=== PATIENT | female | born 1945 | race Hispanic/Latino ===

== ENCOUNTER 2025-03-20 21:10 | Inpatient (IN) | payer MEDICARE ==
[~2025-03-20] VITALS: Ht 157.5 cm; Wt 63.3 kg
[2025-03-20] MEDS: 0.9%NACL 1000ML 1,905 ML IV ONE (21:32)
[2025-03-20 21:36] LABS: BASOPHILS # (AUTO) 0.03 K/uL (0.00-0.20); BASOPHILS % (AUTO) 0.6 % (0.0-5.0); HEMATOCRIT 34.8 % (36-48); IMMATURE GRANULOCYTE ABSOLUTE 0.05 K/uL (0-1); LYMPHOCYTES # (AUTO) 0.4 K/uL (1.0-4.8); LYMPHOCYTES % (AUTO) 8.2 % (21.0-51.0); MEAN CORPUSCULAR HEMOGLOBIN 29.5 pg (27.0-33.0); MEAN CORPUSCULAR HGB CONC 35.1 g/dL (32.0-36.0); MEAN CORPUSCULAR VOLUME 84.1 fL (79-99); MONOCYTES # (AUTO) 0.2 K/uL (0.1-1.0); MONOCYTES % (AUTO) 3.5 % (3.0-13.0); NEUTROPHILS % (AUTO) 86.6 % (40.0-77.0); PLATELET COUNT (AUTO) 99 K/uL (130-400); RED BLOOD CELL COUNT(AUTO) 4.14 MIL/uL (4.00-5.50); RED CELL DISTRIBUTION WIDTH 12.5 % (11.0-15.5); WHITE BLOOD COUNT (AUTO) 4.6 K/uL (4.8-10.8)
--- NOTE | 2025-03-20 21:43 | EKG ---
[facility] Test Date: 2025-03-20 Test Time: 21:39:56 Pat Name: LUZ VAZQUEZ Department: EDH Room: 315 Gender: F Fisher Trammel Net: [id number] [phone] [id number] Requested By: DESIRAE STEEN Order Number: [id number] Reading MD: Sharif Zeng Measurements Intervals [place] Rate: 81 P: 47 IA: 136 QRS: 26 QRSD: 85 T: 85 QT: 388 QTc: 451 Interpretive Statements Sinus rhythm Nonspecific T abnrm, anterolateral leads suggests anterior injury No previous ECG available for comparison Electronically Signed On 03-21-2025 18:11:45 CDT by Sharif Zeng Please click the below link to view image of tracing.
[2025-03-20 21:50] LABS: CREATININE 0.9 mg/dL (0.5-1.0); POTASSIUM 3.5 mmol/L (3.5-5.1)
--- NOTE | 2025-03-20 21:53 | HMCIMG ---
INDICATION: sepsis TECHNIQUE: CHEST 1VW COMPARISON: None FINDINGS AND IMPRESSION: No acute consolidation or pleural effusion. Cardiac silhouette is within normal limits. Mild degenerative changes of the spine. The visualized upper abdomen appears unremarkable.
[2025-03-20 21:55] LABS: ALBUMIN 2.8 g/dL (3.5-5.0); BILIRUBIN,DIRECT 0.5 mg/dL (0.0-0.3); TOTAL PROTEIN, SERUM 5.9 g/dL (6.0-8.3)
[2025-03-20 22:01] LABS: COVID19 (SARS ANTIGEN RAPID) PRESUMPTIVE NEGATIVE (NEGATIVE); INFLUENZA TYPE A Negative For Type A (NEGATIVE); INFLUENZA TYPE B Negative For Type B (NEGATIVE)
--- NOTE | 2025-03-20 22:35 | HMCIMG ---
CT HEAD/BRAIN W/O CONTRAST HISTORY: Altered mental status COMPARISON: None TECHNIQUE: Multiple sequential axial images of the head were obtained from the base of the skull through vertex. Patient was not given contrast through intravenous route. FINDINGS: The ventricles and extraventricular CSF spaces are dilated consistent with cerebral atrophy. Nonspecific white matter changes seen. There is no midline shift, mass effect or herniation. No acute intracranial bleed is seen. Visualized portion of the paranasal sinuses are grossly within normal limits. IMPRESSION: 1. No acute intracranial bleed is seen. 2. Atrophy with white matter changes. CT was performed with one or more following dose reduction techniques: automated exposure control, adjustment of the mA and kv according to patient's size, or use of a iterative reconstruction technique.
--- NOTE | 2025-03-20 22:39 | ERN ---
General Chief Complaint: Altered Mental Status Stated Complaint: ALTERED MENTAL STATUS, FEVER Time Seen by MD: 21:23 History of Present Illness Initial Comments 79-year-old female brought in by EMS from home for generalized weakness and fever. Patient currently is GCS of 14, according to family the patient has a early-onset dementia, but has been more confused for the last few days. The daughter found her at home today to be very weak, she checked her temperature and she had a fever of 102 F. patient denies any symptoms currently. She denies any pain. According to family she has not had cough congestion vomiting or diarrhea. Family reports that she has been sleeping more, less active, and very weak with decreased oral intake. Daughter gave the patient 400 mg of ibuprofen prior to coming here. Family reports that the patient has not seen a doctor in years. She takes a daily multivitamin but otherwise no medications. She does live on her own. Allergies: Coded Allergies: No Known Drug Allergies (Unverified Allergy, Unknown, 03/20/25) Past Medical History Past Medical History: Dementia Past Surgical History: None ROS Dictation CONSTITUTIONAL: Generalized fatigue weakness HEAD/FACE: No signs of trauma. EENT: No eye pain, no blurred vision, no tearing, no double vision, no ear pain, no ear discharge, no nose pain, no nasal congestion, no throat pain, no throat swelling, no mouth pain. RESPIRATORY: No cough, no orthopnea, no SOB, no stridor, no wheezing. CARDIOVASCULAR: No chest pain, no edema, no palpitations, no syncope. GASTROINTESTINAL/ABDOMINAL: No abdominal pain, no constipation, no diarrhea, no nausea, no vomiting. GENITOURINARY: No abnormal discharge, no dysuria, no frequent urination, no hematuria. No complaints of pain in the genitals. MUSCULOSKELETAL: No back pain, no gout, no joint pain, no joint swelling, no muscle pain, no muscle stiffness, no neck pain. INTEGUMENTARY: No change in color, no change in hair/nails, no dryness, no lesion, no lumps, no rash. NEUROLOGICAL/PSYCH: No anxiety, not depressed, no emotional problem, no headache, no numbness, no pre-existing deficit, no history of seizures, no tremors, no weakness. HEMATOLOGIC/LYMPHATIC: Not anemic, no history of blood clots, no apparent bleeding, no bruising, glands not swollen. All Systems Negative, Except as Noted. Physical Exam Physical Exam Dictation VITAL SIGNS: Reviewed. GENERAL APPEARANCE: Alert, but more confused according to family baseline. Thin. HEAD AND FACE: Non-traumatic. EYES: PERRL, pink conjunctivas, eyelid no trauma, anterior chamber clear. EARS: Pinnas intact and no signs of trauma or erythema. Ear canals clear and no discharge. TMs no erythema. NOSE: No discharge, no bleeding. OROPHARYNX: Mouth normal, teeth no caries, tongue pink. Pharynx clear, no erythema. Tonsils no exudates, no abscesses noted. Mucous membrane moist. NECK: Supple, non-tender, no thyromegaly, no masses, no JVD, no bruits. BREAST: Deferred. CHEST: No tenderness, no crepitus, no paradoxical movement, no retractions. LUNGS: Clear, well-ventilated, symmetric, no rales, no wheezing, no rhonchi, no stridor, good breath sounds bilaterally. HEART: Regular rate, regular rhythm, no murmur, no gallops. VASCULAR: No peripheral edema. ABDOMEN: Soft, positive bowel sounds, nondistended, no guarding, nontender, no rebound, no masses no hepatomegaly, no splenomegaly, no Sandoval's sign, no hernias. RECTAL: Deferred. GENITAL: Deferred. NEUROLOGICAL: Normal speech, gross motor function intact, gross sensory function intact. MUSCULOSKELETAL: Neck nontender, full range of motion, back nontender, full range of motion. EXTREMITIES: Nontender, full range of motion. SKIN: Color pink, dry, no turgor, no rash, no lacerations, no abrasions, no contusions. LYMPHATICS: Deferred. Results Laboratory and Microbiology Lab and Micro Result Laboratory Tests Test 03/20/25 21:29 03/20/25 21:40 03/20/25 22:47 White Blood Count 4.6 K/uL (4.8-10.8) L Red Blood Count 4.14 MIL/uL (4.00-5.50) Hemoglobin 12.2 g/dL (12.0-16.0) Hematocrit 34.8 % (36-48) L Mean Corpuscular Volume 84.1 fL (79-99) Mean Corpuscular Hemoglobin 29.5 pg (27.0-33.0) Mean Corpuscular Hemoglobin Concent 35.1 g/dL (32.0-36.0) Red Cell Distribution Width 12.5 % (11.0-15.5) Platelet Count 99 K/uL (130-400) L Mean Platelet Volume 12.1 fL (7.5-10.5) H Immature Granulocyte % (Auto) 1.1 % (0-1) H Neutrophils (%) (Auto) 86.6 % (40.0-77.0) H Lymphocytes (%) (Auto) 8.2 % (21.0-51.0) L Monocytes (%) (Auto) 3.5 % (3.0-13.0) Eosinophils (%) (Auto) 0.0 % (0.0-8.0) Basophils (%) (Auto) 0.6 % (0.0-5.0) Neutrophils # (Auto) 4.0 K/uL (1.8-7.7) Lymphocytes # (Auto) 0.4 K/uL (1.0-4.8) L Monocytes # (Auto) 0.2 K/uL (0.1-1.0) Eosinophils # (Auto) 0.00 K/uL (0.00-0.70) Basophils # (Auto) 0.03 K/uL (0.00-0.20) Absolute Immature Granulocyte (auto 0.05 K/uL (0-1) Nucleated Red Blood Cells 0.0 % (0.0-0.19) White Cell Morphology Comment See comments Sodium Level 126 mmol/L (136-145) L Potassium Level 3.5 mmol/L (3.5-5.1) Chloride Level 93 mmol/L (101-111) L Carbon Dioxide Level 27 mmol/L (21-32) Blood Urea Nitrogen 20 mg/dL (7-18) H Creatinine 0.9 mg/dL (0.5-1.0) Glomerular Filtration Rate Calc 65 mL/min (>90) Random Glucose 147 mg/dL (70-105) H Lactic Acid Level 1.2 mmol/L (0.8-2.5) Total Calcium 7.9 mg/dL (8.5-10.1) L Total Bilirubin 1.0 mg/dL (0.2-1.0) Direct Bilirubin 0.5 mg/dL (0.0-0.3) H Aspartate Amino Transf (AST/SGOT) 43 U/L (10-37) H Alanine Aminotransferase (ALT/SGPT) 23 U/L (12-78) Alkaline Phosphatase 69 U/L (50-136) Total Creatine Kinase 225 U/L (21-232) Troponin I High Sensitivity 27 ng/L (4-50) Total Protein 5.9 g/dL (6.0-8.3) L Albumin 2.8 g/dL (3.5-5.0) L Procalcitonin 1.10 ng/mL (0.05-0.5) H Influenza Type A Antigen Negative For Type A Influenza Type B Antigen Negative For Type B SARS-CoV-2 Antigen (Rapid) PRESUMPTIVE NEGATIVE Urine Color YELLOW (YELLOW) Urine Appearance CLOUDY (CLEAR) H Urine pH 6.0 (5.0-8.0) Urine Specific [place] 1.022 (1.001-1.031) Urine Protein 50 mg/dL (NEGATIVE) H Urine Glucose (UA) NEGATIVE mg/dL (NEGATIVE) Urine Ketones 5 mg/dL (NEGATIVE) H Urine Occult Blood SMALL (NEGATIVE) H Urine Nitrate NEGATIVE (NEGATIVE) Urine Bilirubin NEGATIVE mg/dL (NEGATIVE) Urine Urobilinogen 4.0 mg/dL (0.2-1.0) H Urine Leukocyte Esterase 75 Jori/uL (NEGATIVE) H MDM CC: Generalized weakness, fever Historian: Family, patient has a history of dementia in his an unreliable historian Limitations by social determinants of health: None Comorbidities: Advanced age Differential diagnosis: Sepsis, UTI, pneumonia, bacteremia, dehydration, electrolyte abnormality, other. EKG (independently interpreted by me): Sinus rhythm, rate 81, normal axis, good R-wave progression, intervals are stable. T-wave inversion lead V2 through V6. No STEMI. CT head without contrast (independently interpreted by me): No acute bleed or major abnormality. Chronic changes present. CXR (independently interpreted by me): No cardiomegaly, no pleural effusions, no focal infiltrates. No pneumothorax. Labs (independently ordered and interpreted by me): White blood cell count 4.6, left shift 87% neutrophils. No bands. No anemia. Thrombocytopenia platelets 99. No previous labs to compare to. Chemistry shows dehydration, sodium 126 chloride 93 hyponatremia. Elevated BUN to creatinine ratio. Lactic acid is normal. Liver enzymes are all normal. CK and troponin are normal. Protocol mildly elevated 1.1. Flu and SARS are negative. UA postiive for UTI. Treatment in ED: 30 cc/kg normal saline per sepsis protocol, 1 g Rocephin. Plan: We will admit for hyponatremia, dehydration, thrombocytopenia, pending a urine possibly a urinary tract infection. Consultation: Hospitalist for admission. ED Course Orders Procedure Category Date Status Time Cbc With Differential LAB 03/20/25 Complete 21: Blood Cult BRANDY 03/20/25 In Process 21: Urinalysis Profile LAB 03/20/25 In Process 21:23 Culture Urine BRANDY 03/20/25 In Process 21:23 0.9%Nacl 1000ml (Ns PHA 03/20/25 In Process 1000ml) 21:30 Creatine Kinase, Total LAB 03/20/25 Complete 21:23 Troponin I High LAB 03/20/25 Complete Sensitivity 21:23 Lactic Acid LAB 03/20/25 Complete 21:23 Basic Metabolic Panel LAB 03/20/25 Complete 21:23 Chest 1vw RAD 03/20/25 Resulted 21:23 Procalcitonin LAB 03/20/25 Complete 21:23 Covid19 (Sars Antigen LAB 03/20/25 Complete Rapid) 21:23 Influenza Type A & B, LAB 03/20/25 Complete Rapid 21:23 Hepatic Function Panel LAB 03/20/25 Complete 21:23 Ct Head/Brain W/O CT 03/20/25 Resulted Contrast 21:23 12 Lead Ekg Tracing- EKG 03/20/25 Complete Technical 21:32 Ceftriaxone 1g Vial PHA 03/20/25 Complete (Rocephine 1g Inj) 23:00 Current Medications Medications (Trade) Dose Ordered Sig/Lucila Route PRN Reason Start Time Stop Time Status Last Admin Dose Admin Ceftriaxone Sodium (ROCEphine 1G INJ) 1 gm ONCE ONCE IVPB 03/20/25 23:00 03/20/25 23:01 DC Sodium Chloride 1,905 ml @ 635 mls/hr ONCE ONCE IV 03/20/25 21:30 03/21/25 00:29 03/20/25 21:32 Vital Signs Date Time Temp Pulse Resp B/P (MAP) Pulse Ox O2 Delivery O2 Flow Rate FiO2 03/20/25 21:16 99.7 86 14 115/59 97 Room Air* 0 21 03/20/25 21:11 89 16 109/68 99 0 DX & DISP Disposition: Inpatient Departure Impression: Primary Impression: Hyponatremia Additional Impressions: Dehydration, Generalized weakness, Thrombocytopenia, UTI (urinary tract infection) Condition: Stable Referrals: NEHEMIAH ZHONG MD (PCP) DESIRAE STEEN DO Mar 20, 2025 22:39
[2025-03-20 22:59] LABS: APPEARANCE,URINE CLOUDY (CLEAR); BILIRUBIN,URINE NEGATIVE (NEGATIVE); COLOR,URINE YELLOW (YELLOW); GLUCOSE, URINE (UA) NEGATIVE (NEGATIVE); KETONES,URINE 5 mg/dL (NEGATIVE); LEUKOCYTE ESTERASE ,URINE 75 Leu/uL (NEGATIVE); NITRATE,URINE NEGATIVE (NEGATIVE); OCCULT BLOOD,URINE SMALL (NEGATIVE); PROTEIN,URINE 50 mg/dL (NEGATIVE)
[2025-03-20 23:01] LABS: ADD UA MICROSCOPIC YES
[2025-03-20 23:06] LABS: BACTERIA,URINE MANY /HPF (None Seen); MUCUS,URINE MANY LPF (None Seen)
--- NOTE | 2025-03-20 23:09 | HP ---
[facility] HISTORY AND PHYSICAL Date of Service: Mar 20, 2025 Time of Service: 23:08 ATTENDING/SUPERVISING PHYSICIANS: Dr. Delgado and Dr. Martinez HISTORY OF PRESENT ILLNESS: Ms. Lagunas is a 79-year-old female who presented to [facility] ED via EMS from home for evaluation of generalized weakness and fever. Patient currently is GCS of 14. Per ED according to family the patient has a early-onset dementia, but has been more confused for the last few days. The daughter found her at home today to be very weak, she checked her temperature and she had a fever of 102 F. The patient denies any symptoms currently or any pain, cough, congestion, vomiting, or diarrhea. Family reported that she has been sleeping more, less active, and very weak with decreased oral intake. Daughter gave the patient 400 mg of ibuprofen prior to coming here. Family reports that the patient has not seen a doctor in years. She takes a daily multivitamin but otherwise no medications. She does live on her own. The patient was found to have a UTI. Sodium was 126. Negative for flu and COVID. CT of head: No acute intracranial bleed. Atrophy with white matter changes. Chest x-ray: No consolidations or pleural effusions. In ED patient was administered Rocephin1 g IV and NS IV 1905 mL. ED provider request patient be admitted to the hospital with the diagnosis of hyponatremia, dehydration, generalized weakness, thrombocytopenia, UTI. ED provider request consult to be placed for case management for placement at SNF. I assessed the patient at bedside in room number ED 10. Patient's breathing was even, unlabored, in no distress. Patient was oriented to person, place and situation. Not oriented to time. She states she does feel more confused than usual. I informed her of labs, diagnostics, and plan of care. She verbalized understanding and is in agreement with the plan. Plan and assessment are listed below. REVIEW OF SYSTEMS 12-point ROS reviewed with patient. All pertinent positives mentioned above. Otherwise negative, noncontributory, non-pertinent. PAST MEDICAL HISTORY: As mentioned above PAST SURGICAL HISTORY: None PAST SOCIAL HISTORY: Denied alcohol, tobacco, illicit drug use FAMILY HISTORY: Nonpertinent Coded Allergies: No Known Drug Allergies (Unverified Allergy, Unknown, 03/20/25) PHYSICAL EXAM GENERAL APPEARANCE: The patient is awake, alert, and oriented, in no acute cardiopulmonary distress. NEUROLOGICAL: Cranial nerves II-XII grossly intact. Motor is 5/5 in bilateral upper and lower extremities proximal to distal. No sensory deficits. HEENT: Face is symmetric. Pupils are equal and reactive. Extraocular movements are intact. NECK: Supple. No JVD. No thyromegaly. No submental, submandibular, pre- /postauricular, occipital or supraclavicular lymphadenopathy. CHEST: Normal chest expansion. No Telemetry. LUNGS: Absence of any rales, rhonchi or any wheezing. CARDIOVASCULAR: Regular. S1 and S2 normal. No appreciable rubs, murmurs or gallops. ABDOMEN: Soft, nontender, and nondistended. There is no rebound, voluntary guarding, or rigidity. : Deferred. No Taylor. EXTREMITIES: Non-edematous and not cyanotic. No clubbing. Good capillary refill. SKIN: No skin breakdown. Vital Sign (Last 24 Hours) 03/20/25 21:16 Temp 99.7 Pulse 86 Resp 14 B/P (MAP) 115/59 Pulse Ox 97 O2 Delivery Room Air* O2 Flow Rate 0 FiO2 21 LABS: Laboratory: Test 03/20/25 22:47 03/20/25 21:40 03/20/25 21:29 Range/Units Urine Color YELLOW YELLOW Urine Appearance CLOUDY H CLEAR Urine pH 6.0 5.0-8.0 Urine Specific [place] 1.022 1.001-1.031 Urine Protein 50 H NEGATIVE mg/dL Urine Glucose (UA) NEGATIVE NEGATIVE mg/dL Urine Ketones 5 H NEGATIVE mg/dL Urine Occult Blood SMALL H NEGATIVE Urine Nitrate NEGATIVE NEGATIVE Urine Bilirubin NEGATIVE NEGATIVE mg/dL Urine Urobilinogen 4.0 H 0.2-1.0 mg/dL Urine Leukocyte Esterase 75 H NEGATIVE Jori/uL Urine RBC 2-5 H 0-1 /HPF Urine WBC 11-25 H 0-1 /HPF Urine Bacteria MANY None Seen /HPF Influenza Type A Antigen Negative For Type A NEGATIVE Influenza Type B Antigen Negative For Type B NEGATIVE SARS-CoV-2 Antigen (Rapid) PRESUMPTIVE NEGATIVE NEGATIVE White Blood Count 4.6 L 4.8-10.8 K/uL Red Blood Count 4.14 4.00-5.50 MIL/uL Hemoglobin 12.2 12.0-16.0 g/dL Hematocrit 34.8 L 36-48 % Mean Corpuscular Volume 84.1 79-99 fL Mean Corpuscular Hemoglobin 29.5 27.0-33.0 pg Mean Corpuscular Hemoglobin Concent 35.1 32.0-36.0 g/dL Red Cell Distribution Width 12.5 11.0-15.5 % Platelet Count 99 L 130-400 K/uL Mean Platelet Volume 12.1 H 7.5-10.5 fL Immature Granulocyte % (Auto) 1.1 H 0-1 % Neutrophils (%) (Auto) 86.6 H 40.0-77.0 % Lymphocytes (%) (Auto) 8.2 L 21.0-51.0 % Monocytes (%) (Auto) 3.5 3.0-13.0 % Eosinophils (%) (Auto) 0.0 0.0-8.0 % Basophils (%) (Auto) 0.6 0.0-5.0 % Neutrophils # (Auto) 4.0 1.8-7.7 K/uL Lymphocytes # (Auto) 0.4 L 1.0-4.8 K/uL Monocytes # (Auto) 0.2 0.1-1.0 K/uL Eosinophils # (Auto) 0.00 0.00-0.70 K/uL Basophils # (Auto) 0.03 0.00-0.20 K/uL Absolute Immature Granulocyte (auto 0.05 0-1 K/uL Nucleated Red Blood Cells 0.0 0.0-0.19 % White Cell Morphology Comment See comments Sodium Level 126 L 136-145 mmol/L Potassium Level 3.5 3.5-5.1 mmol/L Chloride Level 93 L 101-111 mmol/L Carbon Dioxide Level 27 21-32 mmol/L Blood Urea Nitrogen 20 H 7-18 mg/dL Creatinine 0.9 0.5-1.0 mg/dL Glomerular Filtration Rate Calc 65 >90 mL/min Random Glucose 147 H 70-105 mg/dL Lactic Acid Level 1.2 0.8-2.5 mmol/L Total Calcium 7.9 L 8.5-10.1 mg/dL Total Bilirubin 1.0 0.2-1.0 mg/dL Direct Bilirubin 0.5 H 0.0-0.3 mg/dL Aspartate Amino Transf (AST/SGOT) 43 H 10-37 U/L Alanine Aminotransferase (ALT/SGPT) 23 12-78 U/L Alkaline Phosphatase 69 50-136 U/L Total Creatine Kinase 225 21-232 U/L Troponin I High Sensitivity 27 4-50 ng/L Total Protein 5.9 L 6.0-8.3 g/dL Albumin 2.8 L 3.5-5.0 g/dL Procalcitonin 1.10 H 0.05-0.5 ng/mL DIAGNOSTICS / RADIOLOGY: [ ] ASSESSMENT: Acute complicated cystitis, POA Acute metabolic encephalopathy, POA Hyponatremia, POA Electrolyte derangement (hyponatremia, hypochloremia, hypocalcemia) Protein calorie malnutrition/hypoalbuminemia Dehydration/ketonuria, POA Acute kidney injury, POA, GFR 65 (no other GFR to compare) Acute febrile illness, POA Hyperglycemia Elevated AST and direct bilirubin General body weakness/debility/frailty Anorexia Leukopenia, POA Anemia Thrombocytopenia Dementia PLAN: -Admit to Medical floor with continuous telemetry monitoring and fall precautions. -Rocephin 2 g IV daily. (ED administered Rocephin 1 g) Follow urine cultures. Antibiotic tailored to culture results. -ED administered NS 30 mL/kilos. Continue NS at 75 mL an hour. -Monitor sodium level. -Consult case management for SNF placement. -Obtain abdominal sonogram for elevated AST and direct bilirubin. -Monitor respiratory status closely. Oxygen therapy as needed to keep Spo2>/+=92%. -PRN medications for: Pain management, fever, hypertension, N/V, constipation. -Glucometer checks AC & HS needed with insulin regular sliding scale coverage as needed. -Blood pressure checks every 4 hours and as needed. -Reconcile home medications once available. - Monitor renal and liver function. -Monitor electrolytes and treat accordingly PRN -AM labs. -GI and DVT prophylaxis -Further plan/orders per hospitalization course. ADVANCED CARE PLANNING 1. Which of the following were discussed? Hospice Care - No Therapeutic options - Yes Advance Directives - Yes Other discussions - 2. Discussed with who? The patient 3. Voluntary nature of this service was explained to the patient? Yes 4. Amount of time spent - __ Over 40 minutes 5. Reviewed by Physician? (if this service was performed by NPP) Yes / No ATTESTATION BY PHYSICIAN I have seen and examined the patient. I reviewed the documentation, medical decision making, and treatment plan as noted by the mid-level provider above. I agree with the findings and plan of care. ALEXANDRE YE [facility] Mar 20, 2025 23:09
[2025-03-20] MEDS: cefTRIAXone 1G VIAL IVPB ONE (23:19)
[2025-03-21] VITALS (7 sets, daily range): BP systolic 106–172; BP diastolic 48–70; PULSE 76–95; RESP 17–19; TEMP 98.1–101.1; O2SAT 92
[2025-03-21] MEDS: 0.9%NACL 1000ML 1,000 ML IV ONE (01:30)
[2025-03-21] MEDS ORDERED: LAbetaLOL 20MG SYG IV PRN (01:30)
[2025-03-21] MEDS ORDERED: LACTULOSE 20 GM/30 ML UDCUP PO PRN (01:30)
[2025-03-21] MEDS ORDERED: acetaMINOPHEN 650 MG SUPPOSITORY RC PRN (01:30)
[2025-03-21] MEDS ORDERED: ondanSETRON 4MG INJ IVP PRN (01:30)
[2025-03-21] MEDS ORDERED: doCUSate SODIUM 100 MG CAP PO PRN (01:30)
[2025-03-21] MEDS: INSULIN humuLIN R 100 UNIT/ML 3ML SQ SCH (06:01)
[2025-03-21 07:13] LABS: HEMATOCRIT 32.8 % (36-48); MEAN CORPUSCULAR HEMOGLOBIN 29.9 pg (27.0-33.0); RED BLOOD CELL COUNT(AUTO) 3.95 MIL/uL (4.00-5.50); RED CELL DISTRIBUTION WIDTH 12.5 % (11.0-15.5)
[2025-03-21 07:22] LABS: CREATININE 0.6 mg/dL (0.5-1.0); POTASSIUM 3.3 mmol/L (3.5-5.1)
[2025-03-21 07:25] LABS: ALBUMIN 2.3 g/dL (3.5-5.0); BILIRUBIN,TOTAL 0.8 mg/dL (0.2-1.0); MAGNESIUM 1.5 mg/dL (1.80-2.40); PHOSPHORUS 1.9 mg/dL (2.5-4.9); TOTAL PROTEIN, SERUM 5.2 g/dL (6.0-8.3)
[2025-03-21 07:52] LABS: THYROID STIMULATING HORMONE 1.49 uIU/mL (0.36-3.74)
[2025-03-21 07:57] LABS: HEMOGLOBIN A1C 5.1 % (4.0-6.0)
--- NOTE | 2025-03-21 11:01 | NUR ---
DCP: [facility] met with dgt Michelle Brennertimothy [phone] (POA). Pt currently lives in a [facility] alone. Pt does not have DME, home health, or provider services. Pt's dgt states that pt has not been to a dr in about 3 years because she refuses to go. Her last PCP was Dr. Bryan Rogers. At [place] pt will be going to [facility]. Addendum: 03/21/25 at 1104 by OSMANI COX SS Amended: Links added.
--- NOTE | 2025-03-21 11:39 | PN ---
[facility] PROGRESS NOTE Date of Service: Mar 21, 2025 Time of Service: 11:[address] leigh SUBJECTIVE: [ 03/20 Ms. Lagunas is a 79-year-old female who presented to [facility] ED via EMS from home for evaluation of generalized weakness and fever. Patient currently is GCS of 14. Per ED according to family the patient has a early-onset dementia, but has been more confused for the last few days. The daughter found her at home today to be very weak, she checked her temperature and she had a fever of 102 F. The patient denies any symptoms currently or any pain, cough, congestion, vomiting, or diarrhea. Family reported that she has been sleeping more, less active, and very weak with decreased oral intake. Daughter gave the patient 400 mg of ibuprofen prior to coming here. Family reports that the patient has not seen a doctor in years. She takes a daily multivitamin but otherwise no medications. She does live on her own. The patient was found to have a UTI. Sodium was 126. Negative for flu and COVID. CT of head: No acute intracranial bleed. Atrophy with white matter changes. Chest x-ray: No consolidations or pleural effusions. In ED patient was administered Rocephin1 g IV and NS IV 1905 mL. ED provider request patient be admitted to the hospital with the diagnosis of hyponatremia, dehydration, generalized weakness, thrombocytopenia, UTI. ED provider request consult to be placed for case management for placement at SNF. I assessed the patient at bedside in room number ED 10. Patient's breathing was even, unlabored, in no distress. Patient was oriented to person, place and situation. Not oriented to time. She states she does feel more confused than usual. I informed her of labs, diagnostics, and plan of care. She verbalized understanding and is in agreement with the plan. Plan and assessment are listed below. 03/21 was seen by nurse practitioner and physician during rounding in room 315. Patient receive two doses of 40 mEq of potassium for potassium of 3.3 today. Also magnesium was 1.5 and patient will receive 2 g of magnesium. UA was positive for leukocytosis. Patient continues to be on Rocephin 2 g daily urine culture pending. Chest x-ray negative. Head CT negative. Ultrasound abdomen pending results. Patient was on complaining of the redness and pus coming off of the patient's both eyes. Possibly patient may have a pink eye tobramycin was ordered. As per daughter was sitting at the bedside she has a beginning of dementia. We will start patient on memantine 5 mg b.i.d. for now. We will continue to monitor patient in the meantime. A.m. labs.] REVIEW OF SYSTEMS 12-point ROS reviewed with patient. All pertinent positives mentioned above. Otherwise negative, noncontributory, non-pertinent. PHYSICAL EXAM GENERAL APPEARANCE: The patient is awake, alert, and oriented, in no acute cardiopulmonary distress. NEUROLOGICAL: Cranial nerves II-XII grossly intact. Motor is 5/5 in bilateral upper and lower extremities proximal to distal. No sensory deficits. HEENT: Face is symmetric. Pupils are equal and reactive. Extraocular movements are intact. NECK: Supple. No JVD. No thyromegaly. No submental, submandibular, pre- /postauricular, occipital or supraclavicular lymphadenopathy. CHEST: Normal chest expansion. No Telemetry. LUNGS: Absence of any rales, rhonchi or any wheezing. CARDIOVASCULAR: Regular. S1 and S2 normal. No appreciable rubs, murmurs or gallops. ABDOMEN: Soft, nontender, and nondistended. There is no rebound, voluntary guarding, or rigidity. : Deferred. No Taylor. EXTREMITIES: Non-edematous and not cyanotic. No clubbing. Good capillary refill. SKIN: No skin breakdown. Vital Signs (last 8hr) Date Time Temp Pulse Resp B/P (MAP) Pulse Ox O2 Delivery O2 Flow Rate FiO2 03/21/25 08:00 99.9 93 17 111/48 92 Room Air 03/21/25 05:12 98.2 87 19 172/52 99 Room Air LABS: Laboratory: Test 03/21/25 07:06 03/21/25 05:54 03/20/25 22:47 03/20/25 21:40 Range/Units White Blood Count 6.0 # 4.8-10.8 K/uL Red Blood Count 3.95 L 4.00-5.50 MIL/uL Hemoglobin 11.8 L 12.0-16.0 g/dL Hematocrit 32.8 L 36-48 % Mean Corpuscular Volume 83.0 79-99 fL Mean Corpuscular Hemoglobin 29.9 27.0-33.0 pg Mean Corpuscular Hemoglobin Concent 36.0 32.0-36.0 g/dL Red Cell Distribution Width 12.5 11.0-15.5 % Platelet Count 78 L 130-400 K/uL Mean Platelet Volume 12.5 H 7.5-10.5 fL Nucleated Red Blood Cells 0.0 0.0-0.19 % Sodium Level 135 L 136-145 mmol/L Potassium Level 3.3 L 3.5-5.1 mmol/L Chloride Level 102 101-111 mmol/L Carbon Dioxide Level 25 21-32 mmol/L Blood Urea Nitrogen 15 7-18 mg/dL Creatinine 0.6 0.5-1.0 mg/dL Glomerular Filtration Rate Calc 91 >90 mL/min Random Glucose 105 70-105 mg/dL Hemoglobin A1c 5.1 4.0-6.0 % Estimated Average Glucose (eAG) 100 70-126 mg/dL Total Calcium 7.5 L 8.5-10.1 mg/dL Phosphorus Level 1.9 L 2.5-4.9 mg/dL Magnesium Level 1.50 L 1.80-2.40 mg/dL Total Bilirubin 0.8 0.2-1.0 mg/dL Aspartate Amino Transf (AST/SGOT) 57 H 10-37 U/L Alanine Aminotransferase (ALT/SGPT) 24 12-78 U/L Alkaline Phosphatase 62 50-136 U/L Ammonia 25 11-32 umol/L Troponin I High Sensitivity 33 4-50 ng/L Total Protein 5.2 L 6.0-8.3 g/dL Albumin 2.3 L 3.5-5.0 g/dL Vitamin B12 Level 466 193-986 pg/mL Folic Acid (LAB) 12.20 2-20 ng/mL Thyroid Stimulating Hormone (TSH) 1.49 0.36-3.74 uIU/mL Whole Blood Glucose 81 70-110 MG/DL Urine Color YELLOW YELLOW Urine Appearance CLOUDY H CLEAR Urine pH 6.0 5.0-8.0 Urine Specific [place] 1.022 1.001-1.031 Urine Protein 50 H NEGATIVE mg/dL Urine Glucose (UA) NEGATIVE NEGATIVE mg/dL Urine Ketones 5 H NEGATIVE mg/dL Urine Occult Blood SMALL H NEGATIVE Urine Nitrate NEGATIVE NEGATIVE Urine Bilirubin NEGATIVE NEGATIVE mg/dL Urine Urobilinogen 4.0 H 0.2-1.0 mg/dL Urine Leukocyte Esterase 75 H NEGATIVE Jori/uL Urine RBC 2-5 H 0-1 /HPF Urine WBC 11-25 H 0-1 /HPF Urine Bacteria MANY None Seen /HPF Influenza Type A Antigen Negative For Type A NEGATIVE Influenza Type B Antigen Negative For Type B NEGATIVE SARS-CoV-2 Antigen (Rapid) PRESUMPTIVE NEGATIVE NEGATIVE Test 03/20/25 21:29 Range/Units Immature Granulocyte % (Auto) 1.1 H 0-1 % Neutrophils (%) (Auto) 86.6 H 40.0-77.0 % Lymphocytes (%) (Auto) 8.2 L 21.0-51.0 % Monocytes (%) (Auto) 3.5 3.0-13.0 % Eosinophils (%) (Auto) 0.0 0.0-8.0 % Basophils (%) (Auto) 0.6 0.0-5.0 % Neutrophils # (Auto) 4.0 1.8-7.7 K/uL Lymphocytes # (Auto) 0.4 L 1.0-4.8 K/uL Monocytes # (Auto) 0.2 0.1-1.0 K/uL Eosinophils # (Auto) 0.00 0.00-0.70 K/uL Basophils # (Auto) 0.03 0.00-0.20 K/uL Absolute Immature Granulocyte (auto 0.05 0-1 K/uL White Cell Morphology Comment See comments Lactic Acid Level 1.2 0.8-2.5 mmol/L Direct Bilirubin 0.5 H 0.0-0.3 mg/dL Total Creatine Kinase 225 21-232 U/L Procalcitonin 1.10 H 0.05-0.5 ng/mL Current Medications Medications (Trade) Dose Ordered Sig/Lucila Route PRN Reason Start Time Stop Time Status Last Admin Dose Admin Acetaminophen (TYLenol 325MG TAB) 650 mg Q6H PRN PO FEVER/MILD PAIN LEVEL 1-3 03/21/25 01:30 04/20/25 01:29 Acetaminophen (TYLenol 650MG SUPPOSITORY) 650 mg Q6H PRN RC FEVER / MILD PAIN 1-3 IF NPO 03/21/25 01:30 04/20/25 01:29 Ceftriaxone Sodium (Rocephin 2gm Inj) 2 gm Q24H IVPB 03/21/25 23:00 03/31/25 22:59 Docusate Sodium (COLace 100MG CAP) 100 mg BID PRN PO CONSTIPATION 03/21/25 01:30 04/20/25 01:29 Insulin Human Regular (humuLIN R 100 UNIT/ML 3ML) INSULIN SLIDING SCAL... ACHS SQ 03/21/25 07:30 04/20/25 07:29 Labetalol HCl (TRANdate 20MG SYG) 10 mg Q2H PRN IV SBP GREATER THAN 160 03/21/25 01:30 04/20/25 01:29 Lactulose (Constulose 20gm/ 30ml Udcup) 20 gm Q6H PRN PO CONSTIPATION 03/21/25 01:30 04/20/25 01:29 Magnesium Sulfate 50 ml @ 0 mls/hr PROTOCOL IV 03/21/25 10:30 04/20/25 10:29 Ondansetron HCl (zoFRAN 4MG INJ) 4 mg Q6H PRN IVP NAUSEA/VOMITING 03/21/25 01:30 04/20/25 01:29 DIAGNOSTICS / RADIOLOGY: [ ] ASSESSMENT: Acute complicated cystitis, POA Acute metabolic encephalopathy, POA [place] eye POA New diagnosis of dementia POA Hyponatremia, POA Electrolyte derangement (hyponatremia, hypochloremia, hypocalcemia) Severe Protein calorie malnutrition/hypoalbuminemia Acute Dehydration/ketonuria, POA Acute kidney injury, POA, GFR 65 (no other GFR to compare) Acute febrile illness, POA Hyperglycemia Elevated AST and direct bilirubin General body weakness/debility/frailty Anorexia Leukopenia, POA Anemia Thrombocytopenia PLAN: Continue medical surgical floor with telemetry Continue 2 g of antibiotic daily Urine culture pending Normal saline at 75 mL/hour Case management is working on [facility] Chest x-ray negative Head CT negative Ultrasound abdomen pending Home medications to be reconciled once available. At this moment no meds in the computer -Monitor respiratory status closely. Oxygen therapy as needed to keep Spo2>/+=92%. -PRN medications for: Pain management, fever, hypertension, N/V, constipation. -Glucometer checks AC & HS needed with insulin regular sliding scale coverage as needed. - Monitor renal and liver function. -Monitor electrolytes and treat accordingly PRN -AM labs. -GI and DVT prophylaxis -Further plan/orders per hospitalization course. ATTESTATION BY PHYSICIAN I have seen and examined the patient. I reviewed the documentation, medical decision making, and treatment plan as noted by the mid-level provider above. I agree with the findings and plan of care. TRANG Lazo MD RISK MANAGEMENT ANALYST Mar 21, 2025 11:39
[2025-03-21] MEDS: PoTASSium chloRIDE 20MEQ ER 20 MEQ ERTAB PO ONE ×2 (11:54→13:19)
--- NOTE | 2025-03-21 15:02 | HMCIMG ---
US ABDOMINAL RUQ\E\LTD HISTORY: Elevated liver enzymes COMPARISON: None TECHNIQUE: Right upper quadrant abdominal ultrasound study was performed. FINDINGS: Liver measures 13 cm. There is gallbladder polyp measuring 3 x 2 x 4 mm. The visualized portion of the pancreas is within normal limits. Liver is echogenic consistent with liver parenchymal disease. No gallstone is seen. Common duct measures 4 mm. No evidence of gallbladder wall thickening is seen. Right kidney measures 9.8 x 4.6 x 3.9 cm. No hydronephrosis is seen of the right kidney. IMPRESSION: 1. Gallbladder polyp. No gallstones or ductal dilatation is seen. 2. No hydronephrosis is seen.
[2025-03-21] MEDS: MAGNESIUM 2GM PREMIX 50ML 50 ML IV SCH (15:17)
[2025-03-21] MEDS: TobRAMYCin/DEXAmethASONE OPTH SUSP 2.5 ML BOT OS SCH (17:05)
[2025-03-21] MEDS: acetaMINOPHEN 325 MG TAB PO PRN (17:06)
[2025-03-21] MEDS: MEMANtine HCL 5 MG TABLET PO SCH (19:53)
[2025-03-21] MEDS: cefTRIAXone 2GM VIAL IVPB SCH (22:18)
[2025-03-22] VITALS (9 sets, daily range): BP systolic 112–164; BP diastolic 42–81; PULSE 82–103; RESP 17–19; TEMP 98.1–103.1; O2SAT 96–100
[2025-03-22 06:07] LABS: BASOPHILS # (AUTO) 0.02 K/uL (0.00-0.20); BASOPHILS % (AUTO) 0.4 % (0.0-5.0); HEMATOCRIT 32.7 % (36-48); IMMATURE GRANULOCYTE ABSOLUTE 0.05 K/uL (0-1); LYMPHOCYTES # (AUTO) 0.2 K/uL (1.0-4.8); LYMPHOCYTES % (AUTO) 4.4 % (21.0-51.0); MEAN CORPUSCULAR HEMOGLOBIN 29.2 pg (27.0-33.0); MEAN CORPUSCULAR HGB CONC 34.9 g/dL (32.0-36.0); MEAN CORPUSCULAR VOLUME 83.8 fL (79-99); MONOCYTES # (AUTO) 0.1 K/uL (0.1-1.0); MONOCYTES % (AUTO) 1.7 % (3.0-13.0); NEUTROPHILS # (AUTO) 4.5 K/uL (1.8-7.7); NEUTROPHILS % (AUTO) 92.5 % (40.0-77.0); RED CELL DISTRIBUTION WIDTH 12.8 % (11.0-15.5); WHITE BLOOD COUNT (AUTO) 4.8 K/uL (4.8-10.8)
[2025-03-22 06:15] LABS: PLATELET COUNT (AUTO) 48 K/uL (130-400)
[2025-03-22 06:18] LABS: ALBUMIN 2.1 g/dL (3.5-5.0); BILIRUBIN,TOTAL 0.7 mg/dL (0.2-1.0); CREATININE 0.7 mg/dL (0.5-1.0); MAGNESIUM 2.1 mg/dL (1.80-2.40); PHOSPHORUS 1.6 mg/dL (2.5-4.9); POTASSIUM 3.3 mmol/L (3.5-5.1); TOTAL PROTEIN, SERUM 4.7 g/dL (6.0-8.3)
[2025-03-22] MEDS: PoTASSium chloRIDE 20MEQ ER 20 MEQ ERTAB PO ONE ×3 (10:30→21:18)
[2025-03-22 13:13] LABS: % IRON SATURATION 10.7 % (22-44)
[2025-03-22 15:59] LABS: BASOPHILS # (AUTO) 0.03 K/uL (0.00-0.20); BASOPHILS % (AUTO) 0.6 % (0.0-5.0); HEMATOCRIT 34.4 % (36-48); IMMATURE GRANULOCYTE ABSOLUTE 0.07 K/uL (0-1); LYMPHOCYTES # (AUTO) 0.3 K/uL (1.0-4.8); LYMPHOCYTES % (AUTO) 5.2 % (21.0-51.0); MEAN CORPUSCULAR HEMOGLOBIN 29.2 pg (27.0-33.0); MEAN CORPUSCULAR HGB CONC 35.2 g/dL (32.0-36.0); MEAN CORPUSCULAR VOLUME 83.1 fL (79-99); MONOCYTES # (AUTO) 0.1 K/uL (0.1-1.0); NEUTROPHILS # (AUTO) 4.6 K/uL (1.8-7.7); NEUTROPHILS % (AUTO) 90.8 % (40.0-77.0); PLATELET COUNT (AUTO) 44 K/uL (130-400); RED BLOOD CELL COUNT(AUTO) 4.14 MIL/uL (4.00-5.50); RED CELL DISTRIBUTION WIDTH 12.9 % (11.0-15.5)
--- NOTE | 2025-03-22 16:09 | PN ---
[facility] PROGRESS NOTE Date of Service: Mar 22, 2025 Time of Service: 15:[address] Martinez SUBJECTIVE: [ 03/20 Ms. Lagunas is a 79-year-old female who presented to [facility] ED via EMS from home for evaluation of generalized weakness and fever. Patient currently is GCS of 14. Per ED according to family the patient has a early-onset dementia, but has been more confused for the last few days. The daughter found her at home today to be very weak, she checked her temperature and she had a fever of 102 F. The patient denies any symptoms currently or any pain, cough, congestion, vomiting, or diarrhea. Family reported that she has been sleeping more, less active, and very weak with decreased oral intake. Daughter gave the patient 400 mg of ibuprofen prior to coming here. Family reports that the patient has not seen a doctor in years. She takes a daily multivitamin but otherwise no medications. She does live on her own. The patient was found to have a UTI. Sodium was 126. Negative for flu and COVID. CT of head: No acute intracranial bleed. Atrophy with white matter changes. Chest x-ray: No consolidations or pleural effusions. In ED patient was administered Rocephin1 g IV and NS IV 1905 mL. ED provider request patient be admitted to the hospital with the diagnosis of hyponatremia, dehydration, generalized weakness, thrombocytopenia, UTI. ED provider request consult to be placed for case management for placement at SNF. I assessed the patient at bedside in room number ED 10. Patient's breathing was even, unlabored, in no distress. Patient was oriented to person, place and situation. Not oriented to time. She states she does feel more confused than usual. I informed her of labs, diagnostics, and plan of care. She verbalized understanding and is in agreement with the plan. Plan and assessment are listed below. 03/21 was seen by nurse practitioner and physician during rounding in room 315. Patient receive two doses of 40 mEq of potassium for potassium of 3.3 today. Also magnesium was 1.5 and patient will receive 2 g of magnesium. UA was positive for leukocytosis. Patient continues to be on Rocephin 2 g daily urine culture pending. Chest x-ray negative. Head CT negative. Ultrasound abdomen pending results. Patient was on complaining of the redness and pus coming off of the patient's both eyes. Possibly patient may have a pink eye tobramycin was ordered. As per daughter was sitting at the bedside she has a beginning of dementia. We will start patient on memantine 5 mg b.i.d. for now. We will continue to monitor patient in the meantime. A.m. labs. 03/22 patient was seen by nurse practitioner and physician during rounding in room 315. Patient's eyes has been looking much better compared to the previous day. Patient continues to be on tobramycin. Platelets today dropped to 48 we consulted dance instructor/oncologist who is on-call today. Final urine cultures growing E coli and is sensitive to Rocephin. Once patient will be discharged we will discharge patient on Keflex when medical stable. Patient also had a temp of 103.1 today. We ordered CBC, BNP, BMP, lactic, procalcitonin, blood culture x2 and normal saline at 75 mL/hour for now. Once we will have the results we will give further recommendations. Physical therapy was consulted patient will also receive Glucerna shakes with the meals. Albumin 2.1 we will consult dietary for further evaluation/recommendations. As per case management patient is pending [facility] acceptance.] REVIEW OF SYSTEMS 12-point ROS reviewed with patient. All pertinent positives mentioned above. Otherwise negative, noncontributory, non-pertinent. PHYSICAL EXAM GENERAL APPEARANCE: The patient is awake, alert, and oriented, in no acute cardiopulmonary distress. NEUROLOGICAL: Cranial nerves II-XII grossly intact. Motor is 5/5 in bilateral upper and lower extremities proximal to distal. No sensory deficits. HEENT: Face is symmetric. Pupils are equal and reactive. Extraocular movements are intact. NECK: Supple. No JVD. No thyromegaly. No submental, submandibular, pre-/postauricular, occipital or supraclavicular lymphadenopathy. CHEST: Normal chest expansion. No Telemetry. LUNGS: Absence of any rales, rhonchi or any wheezing. CARDIOVASCULAR: Regular. S1 and S2 normal. No appreciable rubs, murmurs or gallops. ABDOMEN: Soft, nontender, and nondistended. There is no rebound, voluntary guarding, or rigidity. : Deferred. No Taylor. EXTREMITIES: Non-edematous and not cyanotic. No clubbing. Good capillary refill. SKIN: No skin breakdown. Vital Signs (last 8hr) Date Time Temp Pulse Resp B/P (MAP) Pulse Ox O2 Delivery O2 Flow Rate FiO2 03/22/25 15:52 103.1 101 18 164/78 100 Room Air 03/22/25 15:31 103.1 03/22/25 11:24 98.2 89 18 164/81 97 Room Air 03/22/25 08:17 98.2 88 18 128/42 100 Room Air LABS: Laboratory: Test 03/22/25 15:15 03/22/25 05:44 03/21/25 07:06 03/20/25 22:47 Range/Units Whole Blood Glucose 108 70-110 MG/DL White Blood Count 4.8 4.8-10.8 K/uL Red Blood Count 3.90 L 4.00-5.50 MIL/uL Hemoglobin 11.4 L 12.0-16.0 g/dL Hematocrit 32.7 L 36-48 % Mean Corpuscular Volume 83.8 79-99 fL Mean Corpuscular Hemoglobin 29.2 27.0-33.0 pg Mean Corpuscular Hemoglobin Concent 34.9 32.0-36.0 g/dL Red Cell Distribution Width 12.8 11.0-15.5 % Platelet Count 48 #L 130-400 K/uL Mean Platelet Volume 13.4 H 7.5-10.5 fL Immature Granulocyte % (Auto) 1.0 0-1 % Neutrophils (%) (Auto) 92.5 H 40.0-77.0 % Lymphocytes (%) (Auto) 4.4 L 21.0-51.0 % Monocytes (%) (Auto) 1.7 L 3.0-13.0 % Eosinophils (%) (Auto) 0.0 0.0-8.0 % Basophils (%) (Auto) 0.4 0.0-5.0 % Neutrophils # (Auto) 4.5 1.8-7.7 K/uL Lymphocytes # (Auto) 0.2 L 1.0-4.8 K/uL Monocytes # (Auto) 0.1 0.1-1.0 K/uL Eosinophils # (Auto) 0.00 0.00-0.70 K/uL Basophils # (Auto) 0.02 0.00-0.20 K/uL Absolute Immature Granulocyte (auto 0.05 0-1 K/uL Nucleated Red Blood Cells 0.0 0.0-0.19 % Platelet Morphology Comment See comments Sodium Level 134 L 136-145 mmol/L Potassium Level 3.3 L 3.5-5.1 mmol/L Chloride Level 104 101-111 mmol/L Carbon Dioxide Level 23 21-32 mmol/L Blood Urea Nitrogen 10 7-18 mg/dL Creatinine 0.7 0.5-1.0 mg/dL Glomerular Filtration Rate Calc 87 >90 mL/min Random Glucose 94 70-105 mg/dL Total Calcium 7.6 L 8.5-10.1 mg/dL Phosphorus Level 1.6 L 2.5-4.9 mg/dL Magnesium Level 2.10 1.80-2.40 mg/dL Iron Level 13 L 50-170 mcg/dL Total Iron Binding Capacity 121 L 250-450 mcg/dL Percent Iron Saturation 10.7 L 22-44 % Total Bilirubin 0.7 0.2-1.0 mg/dL Aspartate Amino Transf (AST/SGOT) 67 H 10-37 U/L Alanine Aminotransferase (ALT/SGPT) 27 12-78 U/L Alkaline Phosphatase 84 # 50-136 U/L Total Protein 4.7 L 6.0-8.3 g/dL Albumin 2.1 L 3.5-5.0 g/dL Hemoglobin A1c 5.1 4.0-6.0 % Estimated Average Glucose (eAG) 100 70-126 mg/dL Ammonia 25 11-32 umol/L Troponin I High Sensitivity 33 4-50 ng/L Vitamin B12 Level 466 193-986 pg/mL Folic Acid (LAB) 12.20 2-20 ng/mL Thyroid Stimulating Hormone (TSH) 1.49 0.36-3.74 uIU/mL Urine Color YELLOW YELLOW Urine Appearance CLOUDY H CLEAR Urine pH 6.0 5.0-8.0 Urine Specific [place] 1.022 1.001-1.031 Urine Protein 50 H NEGATIVE mg/dL Urine Glucose (UA) NEGATIVE NEGATIVE mg/dL Urine Ketones 5 H NEGATIVE mg/dL Urine Occult Blood SMALL H NEGATIVE Urine Nitrate NEGATIVE NEGATIVE Urine Bilirubin NEGATIVE NEGATIVE mg/dL Urine Urobilinogen 4.0 H 0.2-1.0 mg/dL Urine Leukocyte Esterase 75 H NEGATIVE Jori/uL Urine RBC 2-5 H 0-1 /HPF Urine WBC 11-25 H 0-1 /HPF Urine Bacteria MANY None Seen /HPF Test 6/23/25 21:40 03/20/25 21:29 Range/Units Influenza Type A Antigen Negative For Type A NEGATIVE Influenza Type B Antigen Negative For Type B NEGATIVE SARS-CoV-2 Antigen (Rapid) PRESUMPTIVE NEGATIVE NEGATIVE White Cell Morphology Comment See comments Lactic Acid Level 1.2 0.8-2.5 mmol/L Direct Bilirubin 0.5 H 0.0-0.3 mg/dL Total Creatine Kinase 225 21-232 U/L Procalcitonin 1.10 H 0.05-0.5 ng/mL Current Medications Medications (Trade) Dose Ordered Sig/Lucila Route PRN Reason Start Time Stop Time Status Last Admin Dose Admin Acetaminophen (TYLenol 325MG TAB) 650 mg Q6H PRN PO FEVER/MILD PAIN LEVEL 1-3 03/21/25 01:30 04/20/25 01:29 03/22/25 15:31 650 MG Acetaminophen (TYLenol 650MG SUPPOSITORY) 650 mg Q6H PRN RC FEVER / MILD PAIN 1-3 IF NPO 03/21/25 01:30 04/20/25 01:29 Ceftriaxone Sodium (Rocephin 2gm Inj) 2 gm Q24H IVPB 03/21/25 23:00 03/31/25 22:59 03/21/25 22:18 2 GM Docusate Sodium (COLace 100MG CAP) 100 mg BID PRN PO CONSTIPATION 03/21/25 01:30 04/20/25 01:29 Folic Acid (FOLic ACID 1 MG TABLET) 1 mg DAILY PO 03/23/25 09:00 04/22/25 08:59 Insulin Human Regular (humuLIN R 100 UNIT/ML 3ML) INSULIN SLIDING SCAL... ACHS SQ 03/21/25 07:30 04/20/25 07:29 Labetalol HCl (TRANdate 20MG SYG) 10 mg Q2H PRN IV SBP GREATER THAN 160 03/21/25 01:30 04/20/25 01:29 Lactulose (Constulose 20gm/ 30ml Udcup) 20 gm Q6H PRN PO CONSTIPATION 03/21/25 01:30 04/20/25 01:29 Magnesium Sulfate 50 ml @ 0 mls/hr PROTOCOL IV 03/21/25 10:30 04/20/25 10:29 03/21/25 15:17 25 MLS/HR Memantine (NAmenDA 5 MG TAB) 5 mg BID PO 03/21/25 21:00 04/20/25 20:59 03/22/25 09:07 5 MG Ondansetron HCl (zoFRAN 4MG INJ) 4 mg Q6H PRN IVP NAUSEA/VOMITING 03/21/25 01:30 04/20/25 01:29 Sodium Chloride 1,000 ml @ 75 mls/hr [id number] IV 03/22/25 16:00 04/21/25 15:59 UNV Tobramycin/ Dexamethasone (TobraDEX EYE DROPS) 1 DROP Q6H OS 03/21/25 12:00 04/20/25 11:59 03/22/25 05:26 1 DROP DIAGNOSTICS / RADIOLOGY: [ ] ASSESSMENT: Acute complicated cystitis, POA Acute metabolic encephalopathy, POA [place] eye POA New diagnosis of dementia POA Hyponatremia, POA Electrolyte derangement (hyponatremia, hypochloremia, hypocalcemia) Severe Protein calorie malnutrition/hypoalbuminemia Acute Dehydration/ketonuria, POA Acute kidney injury, POA, GFR 65 (no other GFR to compare) Acute febrile illness, POA Hyperglycemia Elevated AST and direct bilirubin General body weakness/debility/frailty Anorexia Leukopenia, POA Anemia Thrombocytopenia PLAN: Continue medical surgical floor with telemetry Discontinue Rocephin start Zosyn Urine culture positive for E coli. Once patient will be medically stable to be discharged home patient will be discharged on Keflex for eight days Patient temp of 103 we will order BNP CBC lactic acid procalcitonin, blood culture x2 BNP Normal saline at 75 mL/hour Case management is working on [facility] We will start place patient on amlodipine 10 mg p.o. daily for hypertension Patient positive with a pink eye patient will be started on tobramycin Dietary consultation Oncologist/dance instructor consulted for low platelets Patient is started on iron for iron-deficiency anemia Use [place] shakes with meals Chest x-ray negative Head CT negative Ultrasound abdomen gallbladder polyps Home medications to be reconciled once available. At this moment no meds in the computer. As per RN patient does not take any medications at home -Monitor respiratory status closely. Oxygen therapy as needed to keep Spo2>/+=92%. -PRN medications for: Pain management, fever, hypertension, N/V, constipation. -Glucometer checks AC & HS needed with insulin regular sliding scale coverage as needed. - Monitor renal and liver function. -Monitor electrolytes and treat accordingly PRN -AM labs. -GI and DVT prophylaxis -Further plan/orders per hospitalization course. ATTESTATION BY PHYSICIAN I have seen and examined the patient. I reviewed the documentation, medical decision making, and treatment plan as noted by the mid-level provider above. I agree with the findings and plan of care. TRANG Lazo MD TEST DEVELOPER Mar 22, 2025 16:09
[2025-03-22] MEDS: 0.9%NACL 1000ML 1,000 ML IV SCH (16:15)
[2025-03-22] MEDS ORDERED: 0.9%NACL 50ML IV SCH (16:30)
[2025-03-22 16:51] LABS: CREATININE 0.7 mg/dL (0.5-1.0); POTASSIUM 3.2 mmol/L (3.5-5.1)
[2025-03-22] MEDS: ZOSYN 3.375GM +NS 50ML IVPB SCH (17:25)
--- NOTE | 2025-03-22 23:21 | CONS ---
CONSULT NOTE: Ms. Lagunas is a 79-year-old female who presented to [facility] [place] from home for evaluation of generalized weakness and fever. Patient currently is GCS of 14. Per ED according to family the patient has a early-onset dementia, but has been more confused for the last few days. The daughter found her at home today to be very weak, she checked her temperature and she had a fever of 102 F. The patient denies any symptoms currently or any pain, cough, congestion, vomiting, or diarrhea. Family reported that she has been sleeping more, less active, and very weak with decreased oral intake. Daughter gave the patient 400 mg of ibuprofen prior to coming here. Family reports that the patient has not seen a doctor in years. She takes a daily multivitamin but otherwise no medications. She does live on her own. The patient was found to have a UTI. Sodium was 126. Negative for flu and COVID. CT of head: No acute intracranial bleed. Atrophy with white matter changes. Chest x-ray: No consolidations or pleural effusions. In ED patient was administered Rocephin1 g IV and NS IV 1905 mL. ED provider request patient be admitted to the hospital with the diagnosis of hyponatremia, dehydration, generalized weakness, thrombocytopenia, UTI. ED provider request consult to be placed for case management for placement at SNF. I assessed the patient at bedside in room number ED 10. Patient's breathing was even, unlabored, in no distress. Patient was oriented to person, place and situation. Not oriented to time. She states she does feel more confused than usual. I informed her of labs, diagnostics, and plan of care. She verbalized understanding and is in agreement with the plan. Plan and assessment are listed below. REVIEW OF SYSTEMS 12-point ROS reviewed with patient. All pertinent positives mentioned above. Otherwise negative, noncontributory, non-pertinent. PAST MEDICAL HISTORY: As mentioned above PAST SURGICAL HISTORY: None PAST SOCIAL HISTORY: Denied alcohol, tobacco, illicit drug use FAMILY HISTORY: Nonpertinent Coded Allergies: No Known Drug Allergies (Unverified Allergy, Unknown, 03/20/25) PHYSICAL EXAM GENERAL APPEARANCE: The patient is awake, alert, and oriented, in no acute cardiopulmonary distress. NEUROLOGICAL: Cranial nerves II-XII grossly intact. Motor is 5/5 in bilateral upper and lower extremities proximal to distal. No sensory deficits. HEENT: Face is symmetric. Pupils are equal and reactive. Extraocular movements are intact. NECK: Supple. No JVD. No thyromegaly. No submental, submandibular, pre- /postauricular, occipital or supraclavicular lymphadenopathy. CHEST: Normal chest expansion. No Telemetry. LUNGS: Absence of any rales, rhonchi or any wheezing. CARDIOVASCULAR: Regular. S1 and S2 normal. No appreciable rubs, murmurs or gallops. ABDOMEN: Soft, nontender, and nondistended. There is no rebound, voluntary guarding, or rigidity. : Deferred. No Taylor. EXTREMITIES: Non-edematous and not cyanotic. No clubbing. Good capillary refill. SKIN: No skin breakdown. This patient could have myelodysplastic syndrome. 4. Assessment 1. 1. Thrombocytopenia 2. Anemia 3. Acute complicated cystitis 4. Acute encephalopathy 5. Acute renal failure 6. Dementia Plan 1. Peripheral blood smear showed red blood cells to be normocytic normochromic. There was no fragment cell or schistocyte. There is no teardrop cell. White blood cell with no blasts. There is large platelet. Manual platelet count is around 80K. There was no blast cells be seen. 2. There was hypersegmented neutrophils. This patient to be started on folic acid 1 mg p.o. daily and vitamin B12 1000 mcg p.o. daily. 3. There is frequent pelger-Huet cell. This patient could have myelodysplastic syndrome. 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 We will ask for SPEP, UPEP and free light chain. If there is monoclonal protein we will do a bone marrow biopsy. 5. This patient may be will need for bone marrow biopsy to be done. We need to talk to the family regarding this. There was grand daughter in the side of the bed. If they agree maybe we will ask for bone marrow biopsy to be done tomorrow in the morning LAB RESULTS 03/22/25 19:44: Whole Blood Glucose 98 03/22/25 15:48: White Blood Count 5.0, Red Blood Count 4.14, Hemoglobin 12.1, Hematocrit 34.4L, Mean Corpuscular Volume 83.1, Mean Corpuscular Hemoglobin 29.2, Mean Corpuscular Hemoglobin Concent 35.2, Red Cell Distribution Width 12.9, Platelet Count 44L, Mean Platelet Volume 13.9H, Immature Granulocyte % (Auto) 1.4H, Neutrophils (%) (Auto) 90.8H, Lymphocytes (%) (Auto) 5.2L, Monocytes (%) (Auto) 2.0L, Eosinophils (%) (Auto) 0.0, Basophils (%) (Auto) 0.6, Neutrophils # (Auto) 4.6, Lymphocytes # (Auto) 0.3L, Monocytes # (Auto) 0.1, Eosinophils # (Auto) 0.00, Basophils # (Auto) 0.03, Absolute Immature Granulocyte (auto 0.07, Nucleated Red Blood Cells 0.0, Sodium Level 125L, Potassium Level 3.2L, Chloride Level 95L, Carbon Dioxide Level 26, Blood Urea Nitrogen 11, Creatinine 0.7, Glomerular Filtration Rate Calc 87, Random Glucose 100, Lactic Acid Level 1.3, Total Calcium 7.2L, B-Type Natriuretic Peptide 202H, Procalcitonin 1.74H 03/22/25 05:44: Platelet Morphology Comment See comments, Phosphorus Level 1.6L, Magnesium Level 2.10, Iron Level 13L, Total Iron Binding Capacity 121L, Percent Iron Saturation 10.7L, Total Bilirubin 0.7, Aspartate Amino Transf (AST/SGOT) 67H, Alanine Aminotransferase (ALT/SGPT) 27, Alkaline Phosphatase 84#, Total Protein 4.7L, Albumin 2.1L 03/21/25 07:06: Hemoglobin A1c 5.1, Estimated Average Glucose (eAG) 100, Ammonia 25, Troponin I High Sensitivity 33, Vitamin B12 Level 466, Folic Acid (LAB) 12.20, Thyroid Stimulating Hormone (TSH) 1.49 Laboratory Tests Test 03/22/25 05:27 03/22/25 05:44 03/22/25 11:06 03/22/25 13:48 Whole Blood Glucose 93 MG/DL (70-110) 64 MG/DL (70-110) L 114 MG/DL (70-110) #H White Blood Count 4.8 K/uL (4.8-10.8) Red Blood Count 3.90 MIL/uL (4.00-5.50) L Hemoglobin 11.4 g/dL (12.0-16.0) L Hematocrit 32.7 % (36-48) L Mean Corpuscular Volume 83.8 fL (79-99) Mean Corpuscular Hemoglobin 29.2 pg (27.0-33.0) Mean Corpuscular Hemoglobin Concent 34.9 g/dL (32.0-36.0) Red Cell Distribution Width 12.8 % (11.0-15.5) Platelet Count 48 K/uL (130-400) #L Mean Platelet Volume 13.4 fL (7.5-10.5) H Immature Granulocyte % (Auto) 1.0 % (0-1) Neutrophils (%) (Auto) 92.5 % (40.0-77.0) H Lymphocytes (%) (Auto) 4.4 % (21.0-51.0) L Monocytes (%) (Auto) 1.7 % (3.0-13.0) L Eosinophils (%) (Auto) 0.0 % (0.0-8.0) Basophils (%) (Auto) 0.4 % (0.0-5.0) Neutrophils # (Auto) 4.5 K/uL (1.8-7.7) Lymphocytes # (Auto) 0.2 K/uL (1.0-4.8) L Monocytes # (Auto) 0.1 K/uL (0.1-1.0) Eosinophils # (Auto) 0.00 K/uL (0.00-0.70) Basophils # (Auto) 0.02 K/uL (0.00-0.20) Absolute Immature Granulocyte (auto 0.05 K/uL (0-1) Nucleated Red Blood Cells 0.0 % (0.0-0.19) Platelet Morphology Comment See comments Sodium Level 134 mmol/L (136-145) L Potassium Level 3.3 mmol/L (3.5-5.1) L Chloride Level 104 mmol/L (101-111) Carbon Dioxide Level 23 mmol/L (21-32) Blood Urea Nitrogen 10 mg/dL (7-18) Creatinine 0.7 mg/dL (0.5-1.0) Glomerular Filtration Rate Calc 87 mL/min (>90) Random Glucose 94 mg/dL (70-105) Total Calcium 7.6 mg/dL (8.5-10.1) L Phosphorus Level 1.6 mg/dL (2.5-4.9) L Magnesium Level 2.10 mg/dL (1.80-2.40) Iron Level 13 mcg/dL (50-170) L Total Iron Binding Capacity 121 mcg/dL (250-450) L Percent Iron Saturation 10.7 % (22-44) L Total Bilirubin 0.7 mg/dL (0.2-1.0) Aspartate Amino Transf (AST/SGOT) 67 U/L (10-37) H Alanine Aminotransferase (ALT/SGPT) 27 U/L (12-78) Alkaline Phosphatase 84 U/L (50-136) # Total Protein 4.7 g/dL (6.0-8.3) L Albumin 2.1 g/dL (3.5-5.0) L Test 03/22/25 15:15 03/22/25 15:48 03/22/25 19:44 Whole Blood Glucose 108 MG/DL (70-110) 98 MG/DL (70-110) White Blood Count 5.0 K/uL (4.8-10.8) Red Blood Count 4.14 MIL/uL (4.00-5.50) Hemoglobin 12.1 g/dL (12.0-16.0) Hematocrit 34.4 % (36-48) L Mean Corpuscular Volume 83.1 fL (79-99) Mean Corpuscular Hemoglobin 29.2 pg (27.0-33.0) Mean Corpuscular Hemoglobin Concent 35.2 g/dL (32.0-36.0) Red Cell Distribution Width 12.9 % (11.0-15.5) Platelet Count 44 K/uL (130-400) L Mean Platelet Volume 13.9 fL (7.5-10.5) H Immature Granulocyte % (Auto) 1.4 % (0-1) H Neutrophils (%) (Auto) 90.8 % (40.0-77.0) H Lymphocytes (%) (Auto) 5.2 % (21.0-51.0) L Monocytes (%) (Auto) 2.0 % (3.0-13.0) L Eosinophils (%) (Auto) 0.0 % (0.0-8.0) Basophils (%) (Auto) 0.6 % (0.0-5.0) Neutrophils # (Auto) 4.6 K/uL (1.8-7.7) Lymphocytes # (Auto) 0.3 K/uL (1.0-4.8) L Monocytes # (Auto) 0.1 K/uL (0.1-1.0) Eosinophils # (Auto) 0.00 K/uL (0.00-0.70) Basophils # (Auto) 0.03 K/uL (0.00-0.20) Absolute Immature Granulocyte (auto 0.07 K/uL (0-1) Nucleated Red Blood Cells 0.0 % (0.0-0.19) Sodium Level 125 mmol/L (136-145) L Potassium Level 3.2 mmol/L (3.5-5.1) L Chloride Level 95 mmol/L (101-111) L Carbon Dioxide Level 26 mmol/L (21-32) Blood Urea Nitrogen 11 mg/dL (7-18) Creatinine 0.7 mg/dL (0.5-1.0) Glomerular Filtration Rate Calc 87 mL/min (>90) Random Glucose 100 mg/dL (70-105) Lactic Acid Level 1.3 mmol/L (0.8-2.5) Total Calcium 7.2 mg/dL (8.5-10.1) L B-Type Natriuretic Peptide 202 pg/mL (0-100) H Procalcitonin 1.74 ng/mL (0.05-0.5) H JEYSON QUEVEDO MD Mar 22, 2025 23:21
[2025-03-22] MEDS ORDERED: acetaMINOPHEN 325 MG TAB PO PRN (23:30)
[2025-03-23] VITALS (8 sets, daily range): BP systolic 103–143; BP diastolic 41–65; PULSE 74–116; RESP 18–20; TEMP 98.2–100.8; O2SAT 96–98
[2025-03-23 04:51] LABS: BASOPHILS # (AUTO) 0.02 K/uL (0.00-0.20); BASOPHILS % (AUTO) 0.4 % (0.0-5.0); HEMATOCRIT 31.2 % (36-48); IMMATURE GRANULOCYTE ABSOLUTE 0.06 K/uL (0-1); LYMPHOCYTES # (AUTO) 0.2 K/uL (1.0-4.8); LYMPHOCYTES % (AUTO) 4.1 % (21.0-51.0); MEAN CORPUSCULAR HEMOGLOBIN 29.1 pg (27.0-33.0); MEAN CORPUSCULAR HGB CONC 34.9 g/dL (32.0-36.0); MEAN CORPUSCULAR VOLUME 83.4 fL (79-99); MONOCYTES # (AUTO) 0.1 K/uL (0.1-1.0); MONOCYTES % (AUTO) 2.1 % (3.0-13.0); NEUTROPHILS # (AUTO) 4.4 K/uL (1.8-7.7); NEUTROPHILS % (AUTO) 92.2 % (40.0-77.0); PLATELET COUNT (AUTO) 27 K/uL (130-400); RED BLOOD CELL COUNT(AUTO) 3.74 MIL/uL (4.00-5.50); RED CELL DISTRIBUTION WIDTH 12.9 % (11.0-15.5); WHITE BLOOD COUNT (AUTO) 4.8 K/uL (4.8-10.8)
[2025-03-23 05:10] LABS: BILIRUBIN,TOTAL 1.2 mg/dL (0.2-1.0); CREATININE 0.8 mg/dL (0.5-1.0); MAGNESIUM 1.6 mg/dL (1.80-2.40); TOTAL PROTEIN, SERUM 4.5 g/dL (6.0-8.3)
[2025-03-23 06:02] LABS: BAND NEUTROPHILS % (MANUAL) 13 % (0-2); LYMPHOCYTES % (MANUAL) 2 % (22-44); MONOCYTES % (MANUAL) 2 % (2-9); SEGMENTED NEUTROPHILS % 83 % (40-70); TOTAL CELLS COUNTED 100
[2025-03-23 06:03] LABS: MAN.DIFF COMMENT-IMPRESSION MANUAL DIFFERENTIAL; PLATELET MORPHOLOGY COMMENT MARKED DEC
[2025-03-23] MEDS: amLODIPine 5 MG TAB PO SCH (09:00)
[2025-03-23] MEDS: FERROUS SULFATE 325 MG TABLET.DR PO SCH (10:06)
[2025-03-23] MEDS: FOLic ACID 1 MG TABLET PO SCH (10:07)
--- NOTE | 2025-03-23 13:17 | PN ---
Ms. Lagunas is a 79-year-old female who presented to [facility] [place] ED via EMS from home for evaluation of generalized weakness and fever. Patient currently is GCS of 14. Per ED according to family the patient has a early-onset dementia, but has been more confused for the last few days. The daughter found her at home today to be very weak, she checked her temperature and she had a fever of 102 F. The p atient denies any symptoms currently or any pain, cough, congestion, vomiting, or diarrhea. Family reported that she has been sleeping more, less active, and very weak with decreased oral intake. Daughter gave the patient 400 mg of ibuprofen prior to coming here. Family reports that the patient has not seen a doctor in years. She takes a daily multivitamin but otherwise no medications. She does live on her own. The patient was found to have a UTI. Sodium was 126. Negative for flu and COVID. CT of head: No acute intracranial bleed. Atrophy with white matter changes. Chest x-ray: No consolidations or pleural effusions. In ED patient was administered Rocephin1 g IV and NS IV 1905 mL. ED provider request patient be admitted to the hospital with the diagnosis of hyponatremia, dehydration, generalized weakness, thrombocytopenia, UTI. ED provider request consult to be placed for case management for placement at SNF. I assessed the patient at bedside in room number ED 10. Patient's breathing was even, unlabored, in no distress. Patient was oriented to person, place and situation. Not oriented to time. She states she does feel more confused than usual. I informed her of labs, diagnostics, and plan of care. She verbalized understanding and is in agreement with the plan. Plan and assessment are listed below. REVIEW OF SYSTEMS 12-point ROS reviewed with patient. All pertinent positives mentioned above. Otherwise negative, noncontributory, non-pertinent. PAST MEDICAL HISTORY: As mentioned above PAST SURGICAL HISTORY: None PAST SOCIAL HISTORY: Denied alcohol, tobacco, illicit drug use FAMILY HISTORY: Nonpertinent Coded Allergies: No Known Drug Allergies (Unverified Allergy, Unknown, 03/20/25) PHYSICAL EXAM GENERAL APPEARANCE: The patient is awake, alert, and oriented, in no acute cardiopulmonary distress. NEUROLOGICAL: Cranial nerves II-XII grossly intact. Motor is 5/5 in bilateral upper and lower extremities proximal to distal. No sensory deficits. HEENT: Face is symmetric. Pupils are equal and reactive. Extraocular movements are intact. NECK: Supple. No JVD. No thyromegaly. No submental, submandibular, pre- /postauricular, occipital or supraclavicular lymphadenopathy. CHEST: Normal chest expansion. No Telemetry. LUNGS: Absence of any rales, rhonchi or any wheezing. CARDIOVASCULAR: Regular. S1 and S2 normal. No appreciable rubs, murmurs or gallops. ABDOMEN: Soft, nontender, and nondistended. There is no rebound, voluntary guarding, or rigidity. : Deferred. No Taylor. EXTREMITIES: Non-edematous and not cyanotic. No clubbing. Good capillary refill. SKIN: No skin breakdown. This patient could have myelodysplastic syndrome. Assessment 1. Thrombocytopenia 2. Anemia 3. Acute complicated cystitis 4. Acute encephalopathy 5. Acute renal failure 6. Dementia Plan 1. Peripheral blood smear showed red blood cells to be normocytic normochromic. There was no fragment cell or schistocyte. There is no teardrop cell. White blood cell with no blasts. There is large platelet. Manual platelet count is around 80K. There was no blast cells be seen. 2. There was hypersegmented neutrophils. This patient to be started on folic acid 1 mg p.o. daily and vitamin B12 1000 mcg p.o. daily. 3. There is frequent pelger-Huet cell. This patient could have myelodysplastic syndrome. 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 We will ask for SPEP, UPEP and free light chain. If there is monoclonal protein we will do a bone marrow biopsy. 5. Consult interventional radiology for bone marrow biopsy Vitals/Labs Vital Signs Date Time Temp Pulse Resp B/P (MAP) Pulse Ox O2 Delivery O2 Flow Rate FiO2 03/23/25 11:18 98.2 89 18 143/65 99 Room Air 03/22/25 19:58 0 21 Laboratory Tests 03/22/25 15:48 03/23/25 04:18 Medications Current Medications Sodium Chloride 1,905 ml @ 635 mls/hr ONCE ONCE IV Last administered on 03/20/25at 21:32; Start 03/20/25 at 21:30; Stop 03/21/25 at 00:29; Status DC Ceftriaxone Sodium 1 gm ONCE ONCE IVPB Last administered on 03/20/25at 23:19; Start 03/20/25 at 23:00; Stop 03/20/25 at 23:01; Status DC Ceftriaxone Sodium 2 gm Q24H IVPB Last administered on 03/21/25at 22:18; Start 03/21/25 at 23:00; Stop 03/22/25 at 16:05; Status DC Sodium Chloride 1,000 ml @ 75 mls/hr [id number] ONCE IV; Start 03/21/25 at 01:30; Stop 03/21/25 at 14:49; Status DC Acetaminophen 650 mg Q6H PRN PO Last administered on 03/22/25at 23:25; Start 03/21/25 at 01:30; Stop 04/20/25 at 01:29 Acetaminophen 650 mg Q6H PRN RC; Start 03/21/25 at 01:30; Stop 04/20/25 at 01:29 Lactulose 20 gm Q6H PRN PO; Start 03/21/25 at 01:30; Stop 04/20/25 at 01:29 Docusate Sodium 100 mg BID PRN PO; Start 03/21/25 at 01:30; Stop 04/20/25 at 01:29 Ondansetron HCl 4 mg Q6H PRN IVP; Start 03/21/25 at 01:30; Stop 04/20/25 at 01:29 Labetalol HCl 10 mg Q2H PRN IV; Start 03/21/25 at 01:30; Stop 04/20/25 at 01:29 Insulin Human Regular INSULIN SLIDING SCAL... ACHS SQ; Start 03/21/25 at 07:30; Stop 04/20/25 at 07:29 Magnesium Sulfate 50 ml @ 0 mls/hr PROTOCOL IV Last administered on 03/23/25at 06:27; Start 03/21/25 at 10:30; Stop 04/20/25 at 10:29 Potassium Chloride 40 meq ONCE ONCE PO; Start 03/21/25 at 13:00; Stop 03/21/25 at 13:01; Status DC Potassium Chloride 40 meq ONCE ONCE PO Last administered on 03/21/25at 11:54; Start 03/21/25 at 10:30; Stop 03/21/25 at 10:31; Status DC Tobramycin/ Dexamethasone 1 DROP Q6H OS Last administered on 03/23/25at 05:50; Start 03/21/25 at 12:00; Stop 04/20/25 at 11:59 Memantine 5 mg BID PO Last administered on 03/23/25at 10:06; Start 03/21/25 at 21:00; Stop 04/20/25 at 20:59 Potassium Chloride 40 meq ONCE ONCE PO; Start 03/22/25 at 10:30; Stop 03/22/25 at 10:34; Status DC Potassium Chloride 20 meq ONCE ONCE PO Last administered on 03/22/25at 21:18; Start 03/22/25 at 21:00; Stop 03/22/25 at 21:01; Status DC Folic Acid 1 mg DAILY PO Last administered on 03/23/25at 10:07; Start 03/23/25 at 09:00; Stop 04/22/25 at 08:59 Sodium Chloride 1,000 ml @ 75 mls/hr [id number] IV Last administered on 03/23/25at 03:22; Start 03/22/25 at 16:00; Stop 04/21/25 at 15:59 Ferrous Sulfate 325 mg DAILY PO Last administered on 03/23/25at 10:06; Start 03/23/25 at 09:00; Stop 04/22/25 at 08:59 Piperacillin Sod/ Tazobactam Sod 3.375 gm Q8H IVPB Last administered on 03/23/25at 10:06; Start 03/22/25 at 16:30; Stop 04/01/25 at 16:29 Sodium Chloride 50 ml AD IV; Start 03/22/25 at 16:30; Stop 03/22/25 at 16:12; Status DC Amlodipine Besylate 10 mg DAILY PO; Start 03/23/25 at 09:00; Stop 04/22/25 at 08:59 Potassium Chloride 40 meq ONCE ONCE PO Last administered on 03/22/25at 17:26; Start 03/22/25 at 17:00; Stop 03/22/25 at 17:01; Status DC Acetaminophen 650 mg Q4H PRN PO; Start 03/22/25 at 23:30; Stop 04/21/25 at 23:29 JEYSON QUEVEDO MD Mar 23, 2025 13:17
--- NOTE | 2025-03-23 14:27 | PN ---
[facility] PROGRESS NOTE Date of Service: Mar 23, 2025 Time of Service: 14:[address] Martinez SUBJECTIVE: [ 03/20 Ms. Lagunas is a 79-year-old female who presented to [facility] ED via EMS from home for evaluation of generalized weakness and fever. Patient currently is GCS of 14. Per ED according to family the patient has a early-onset dementia, but has been more confused for the last few days. The daughter found her at home today to be very weak, she checked her temperature and she had a fever of 102 F. The patient denies any symptoms currently or any pain, cough, congestion, vomiting, or diarrhea. Family reported that she has been sleeping more, less active, and very weak with decreased oral intake. Daughter gave the patient 400 mg of ibuprofen prior to coming here. Family reports that the patient has not seen a doctor in years. She takes a daily multivitamin but otherwise no medications. She does live on her own. The patient was found to have a UTI. Sodium was 126. Negative for flu and COVID. CT of head: No acute intracranial bleed. Atrophy with white matter changes. Chest x-ray: No consolidations or pleural effusions. In ED patient was administered Rocephin1 g IV and NS IV 1905 mL. ED provider request patient be admitted to the hospital with the diagnosis of hyponatremia, dehydration, generalized weakness, thrombocytopenia, UTI. ED provider request consult to be placed for case management for placement at SNF. I assessed the patient at bedside in room number ED 10. Patient's breathing was even, unlabored, in no distress. Patient was oriented to person, place and situation. Not oriented to time. She states she does feel more confused than usual. I informed her of labs, diagnostics, and plan of care. She verbalized understanding and is in agreement with the plan. Plan and assessment are listed below. 03/21 was seen by nurse practitioner and physician during rounding in room 315. Patient receive two doses of 40 mEq of potassium for potassium of 3.3 today. Also magnesium was 1.5 and patient will receive 2 g of magnesium. UA was positive for leukocytosis. Patient continues to be on Rocephin 2 g daily urine culture pending. Chest x-ray negative. Head CT negative. Ultrasound abdomen pending results. Patient was on complaining of the redness and pus coming off of the patient's both eyes. Possibly patient may have a pink eye tobramycin was ordered. As per daughter was sitting at the bedside she has a beginning of dementia. We will start patient on memantine 5 mg b.i.d. for now. We will continue to monitor patient in the meantime. A.m. labs. 03/22 patient was seen by nurse practitioner and physician during rounding in room 315. Patient's eyes has been looking much better compared to the previous day. Patient continues to be on tobramycin. Platelets today dropped to 48 we consulted clinical laboratory manager/oncologist who is on-call today. Final urine cultures growing E coli and is sensitive to Rocephin. Once patient will be discharged we will discharge patient on Keflex when medical stable. Patient also had a temp of 103.1 today. We ordered CBC, BNP, BMP, lactic, procalcitonin, blood culture x2 and normal saline at 75 mL/hour for now. Once we will have the results we will give further recommendations. Physical therapy was consulted patient will also receive Glucerna shakes with the meals. Albumin 2.1 we will consult dietary for further evaluation/recommendations. As per case management patient is pending [facility] acceptance. Patient was seen by nurse practitioner and physician during rounding in room 315. Granddaughter at the bedside. Today platelets dropped down to 27. Patient was evaluated by oncologist. And as per [place], [place] [address]. There is no blasts cell seen.There was hypersegmented neutrophils. This patient to be started on folic acid 1 mg p.o. daily and vitamin B12 1000 mcg p.o. daily. There is frequent pelger-Huet cell. This patient could have myelodysplastic syndrome.There is rouleaux phenomena. We will ask for SPEP, UPEP and free light chain. If there is monoclonal protein we will do a bone marrow biopsy, also is requesting to consult IR for bone marrow biopsy. Nurse practitioner spoke with the granddaughter at the bedside and at this moment she believes that they do not really want to proceed with biopsy. Patient had a fever of 100.3 at midnight last night. Urine culture positive for E coli blood culture still pending results. Patient continues to be on Zosyn WBC 4.8. We will continue to monitor patient in the meantime. A.m.] REVIEW OF SYSTEMS 12-point ROS reviewed with patient. All pertinent positives mentioned above. Otherwise negative, noncontributory, non-pertinent. PHYSICAL EXAM GENERAL APPEARANCE: The patient is awake, alert, and oriented, in no acute cardiopulmonary distress. NEUROLOGICAL: Cranial nerves II-XII grossly intact. Motor is 5/5 in bilateral upper and lower extremities proximal to distal. No sensory deficits. HEENT: Face is symmetric. Pupils are equal and reactive. Extraocular movements are intact. NECK: Supple. No JVD. No thyromegaly. No submental, submandibular, pre- /postauricular, occipital or supraclavicular lymphadenopathy. CHEST: Normal chest expansion. No Telemetry. LUNGS: Absence of any rales, rhonchi or any wheezing. CARDIOVASCULAR: Regular. S1 and S2 normal. No appreciable rubs, murmurs or gallops. ABDOMEN: Soft, nontender, and nondistended. There is no rebound, voluntary guarding, or rigidity. : Deferred. No Taylor. EXTREMITIES: Non-edematous and not cyanotic. No clubbing. Good capillary refill. SKIN: No skin breakdown. Vital Signs (last 8hr) Date Time Temp Pulse Resp B/P (MAP) Pulse Ox O2 Delivery O2 Flow Rate FiO2 03/23/25 11:18 98.2 89 18 143/65 99 Room Air 03/23/25 07:40 98.2 74 18 110/60 98 Room Air LABS: Laboratory: Test 03/23/25 10:49 03/23/25 04:18 03/22/25 15:48 03/22/25 05:44 Range/Units Whole Blood Glucose 97 70-110 MG/DL White Blood Count 4.8 4.8-10.8 K/uL Red Blood Count 3.74 L 4.00-5.50 MIL/uL Hemoglobin 10.9 L 12.0-16.0 g/dL Hematocrit 31.2 L 36-48 % Mean Corpuscular Volume 83.4 79-99 fL Mean Corpuscular Hemoglobin 29.1 27.0-33.0 pg Mean Corpuscular Hemoglobin Concent 34.9 32.0-36.0 g/dL Red Cell Distribution Width 12.9 11.0-15.5 % Platelet Count 27 #L 130-400 K/uL Mean Platelet Volume 13.2 H 7.5-10.5 fL Immature Granulocyte % (Auto) 1.2 H 0-1 % Neutrophils (%) (Auto) 92.2 H 40.0-77.0 % Lymphocytes (%) (Auto) 4.1 L 21.0-51.0 % Monocytes (%) (Auto) 2.1 L 3.0-13.0 % Eosinophils (%) (Auto) 0.0 0.0-8.0 % Basophils (%) (Auto) 0.4 0.0-5.0 % Neutrophils # (Auto) 4.4 1.8-7.7 K/uL Lymphocytes # (Auto) 0.2 L 1.0-4.8 K/uL Monocytes # (Auto) 0.1 0.1-1.0 K/uL Eosinophils # (Auto) 0.00 0.00-0.70 K/uL Basophils # (Auto) 0.02 0.00-0.20 K/uL Absolute Immature Granulocyte (auto 0.06 0-1 K/uL Segmented Neutrophils % 83 H 40-70 % Band Neutrophils % 13 H 0-2 % Lymphocytes % (Manual) 2 L 22-44 % Monocytes % (Manual) 2 2-9 % Nucleated Red Blood Cells 0.0 0.0-0.19 % Differential Comment MANUAL DIFFERENTIAL White Cell Morphology Comment Platelet Morphology Comment MARKED DEC Red Blood Cell Morphology Sodium Level 130 L 136-145 mmol/L Potassium Level 4.0 3.5-5.1 mmol/L Chloride Level 99 L 101-111 mmol/L Carbon Dioxide Level 22 21-32 mmol/L Blood Urea Nitrogen 10 7-18 mg/dL Creatinine 0.8 0.5-1.0 mg/dL Glomerular Filtration Rate Calc 74 >90 mL/min Random Glucose 85 70-105 mg/dL Total Calcium 7.3 L 8.5-10.1 mg/dL Magnesium Level 1.60 L 1.80-2.40 mg/dL Total Bilirubin 1.2 #H 0.2-1.0 mg/dL Aspartate Amino Transf (AST/SGOT) 79 H 10-37 U/L Alanine Aminotransferase (ALT/SGPT) 34 # 12-78 U/L Alkaline Phosphatase 126 # 50-136 U/L Total Protein 4.5 L 6.0-8.3 g/dL Albumin 2.0 L 3.5-5.0 g/dL Lactic Acid Level 1.3 0.8-2.5 mmol/L B-Type Natriuretic Peptide 202 H 0-100 pg/mL Procalcitonin 1.74 H 0.05-0.5 ng/mL Phosphorus Level 1.6 L 2.5-4.9 mg/dL Iron Level 13 L 50-170 mcg/dL Total Iron Binding Capacity 121 L 250-450 mcg/dL Percent Iron Saturation 10.7 L 22-44 % Current Medications Medications (Trade) Dose Ordered Sig/Lucila Route PRN Reason Start Time Stop Time Status Last Admin Dose Admin Acetaminophen (TYLenol 325MG TAB) 650 mg Q4H PRN PO TEMPERATURE GREATER THAN 101.5 03/22/25 23:30 04/21/25 23:29 Acetaminophen (TYLenol 325MG TAB) 650 mg Q6H PRN PO FEVER/MILD PAIN LEVEL 1-3 03/21/25 01:30 04/20/25 01:29 03/23/25 13:16 650 MG Acetaminophen (TYLenol 650MG SUPPOSITORY) 650 mg Q6H PRN RC FEVER / MILD PAIN 1-3 IF NPO 03/21/25 01:30 04/20/25 01:29 Amlodipine Besylate (NorvASC 5MG TAB) 10 mg DAILY PO 03/23/25 09:00 04/22/25 08:59 Ceftriaxone Sodium (Rocephin 2gm Inj) 2 gm Q24H IVPB 03/21/25 23:00 03/22/25 16:05 DC 03/21/25 22:18 2 GM Docusate Sodium (COLace 100MG CAP) 100 mg BID PRN PO CONSTIPATION 03/21/25 01:30 04/20/25 01:29 Ferrous Sulfate (Ferrous Sulfate) 325 mg DAILY PO 03/23/25 09:00 04/22/25 08:59 03/23/25 10:06 325 MG Folic Acid (FOLic ACID 1 MG TABLET) 1 mg DAILY PO 03/23/25 09:00 04/22/25 08:59 03/23/25 10:07 1 MG Insulin Human Regular (humuLIN R 100 UNIT/ML 3ML) INSULIN SLIDING SCAL... ACHS SQ 03/21/25 07:30 04/20/25 07:29 Labetalol HCl (TRANdate 20MG SYG) 10 mg Q2H PRN IV SBP GREATER THAN 160 03/21/25 01:30 04/20/25 01:29 Lactulose (Constulose 20gm/ 30ml Udcup) 20 gm Q6H PRN PO CONSTIPATION 03/21/25 01:30 04/20/25 01:29 Magnesium Sulfate 50 ml @ 0 mls/hr PROTOCOL IV 03/21/25 10:30 04/20/25 10:29 03/23/25 06:27 25 MLS/HR Memantine (NAmenDA 5 MG TAB) 5 mg BID PO 03/21/25 21:00 04/20/25 20:59 03/23/25 10:06 5 MG Ondansetron HCl (zoFRAN 4MG INJ) 4 mg Q6H PRN IVP NAUSEA/VOMITING 03/21/25 01:30 04/20/25 01:29 Piperacillin Sod/ Tazobactam Sod (Zosyn 3.375gm+NS 50ml) 3.375 gm Q8H IVPB 03/22/25 16:30 04/01/25 16:29 03/23/25 10:06 3.375 GM Sodium Chloride 1,000 ml @ 75 mls/hr [id number] IV 03/22/25 16:00 04/21/25 15:59 03/23/25 03:22 75 MLS/HR Sodium Chloride (NS 50ml) 50 ml AD IV 03/22/25 16:30 03/22/25 16:12 DC Tobramycin/ Dexamethasone (TobraDEX EYE DROPS) 1 DROP Q6H OS 03/21/25 12:00 04/20/25 11:59 03/23/25 05:50 1 DROP DIAGNOSTICS / RADIOLOGY: [ ] ASSESSMENT: Acute complicated cystitis, POA Acute metabolic encephalopathy, POA [place] eye POA New diagnosis of dementia POA Hyponatremia, POA Electrolyte derangement (hyponatremia, hypochloremia, hypocalcemia) Severe Protein calorie malnutrition/hypoalbuminemia Acute Dehydration/ketonuria, POA Acute kidney injury, POA, GFR 65 (no other GFR to compare) Acute febrile illness, POA Hyperglycemia Elevated AST and direct bilirubin General body weakness/debility/frailty Anorexia Leukopenia, POA Anemia Thrombocytopenia PLAN: Continue medical surgical floor with telemetry As per oncologist/clinical laboratory [place] [address]. There is no blasts cell seen.There was hypersegmented neutrophils. This patient to be started on folic acid 1 mg p.o. daily and vitamin B12 1000 mcg p.o. daily.There is frequent pelger-Huet cell. This patient could have myelodysplastic syndrome.There is rouleaux phenomena. We will ask for SPEP, UPEP and free light chain. If there is monoclonal protein we will do a bone marrow biopsy, also is requesting to consult IR for bone marrow biopsy. Nurse practitioner spoke with the granddaughter at the bedside and at this moment she believes that they do not really want to proceed with biopsy. Urine culture positive for E coli. Once patient will be medically stable to be discharged home patient will be discharged on Keflex for eight days Patient temp of 103 we will order BNP CBC lactic acid procalcitonin, blood culture x2 BNP Normal saline at 75 mL/hour Case management is working on [facility] We will start place patient on amlodipine 10 mg p.o. daily for hypertension Patient positive with a pink eye patient will be started on tobramycin Dietary consultation Oncologist/clinical laboratory manager consulted for low platelets Patient is started on iron for iron-deficiency anemia Use Sarna shakes with meals Chest x-ray negative Head CT negative Ultrasound abdomen gallbladder polyps Home medications to be reconciled once available. At this moment no meds in the computer. As per RN patient does not take any medications at home -Monitor respiratory status closely. Oxygen therapy as needed to keep Spo2>/+=92%. -PRN medications for: Pain management, fever, hypertension, N/V, constipation. -Glucometer checks AC & HS needed with insulin regular sliding scale coverage as needed. - Monitor renal and liver function. -Monitor electrolytes and treat accordingly PRN -AM labs. -GI and DVT prophylaxis -Further plan/orders per hospitalization course. ATTESTATION BY PHYSICIAN I have seen and examined the patient. I reviewed the documentation, medical dec ision making, and treatment plan as noted by the mid-level provider above. I agree with the findings and plan of care. TRANG Lazo MD FAMILY RESOURCE MANAGEMENT SPECIALIST Mar 23, 2025 14:27
--- NOTE | 2025-03-23 19:02 | NUR ---
Nutrition consult per PCM eval Reviewed labs, notes, and medications. Pt with early onsent dementia, pending SNF placement, MVI QD @ home, on 75 gm cho + glucerna tid w/ trays, IV fluids, b-complex, Na 130(L), Ca 7.3(L), Mg 1.60(L), elevated AST 79 per chart review. 75 %PO intake, last BM 03/23/25, wt via bed scale, no edema, well nourished, no wounds per nursing. Low albumin may be due to inflammation. Recommendations: -Provide 60 gm cho + glucerna TID w/ trays+ SF gatorage QD w/ lunch tray -Monitor PO intake -Encourage PO intake as able -Monitor BM -If no BM >3 days consider stool softener -Monitor electrolytes -Replenish electrolytes per protocol -Monitor wts -Reweigh as able -Order Vit D, vit b-12 labs to rule out deficiencies -Provide b-complex QD -Texture per RN ORTHOPEDIC recs -Recommend Pt to follow up with PCP -Monitor goals of care RD to follow + available for consult per protocol Addendum: 03/23/25 at [address] Amended: Links added.
[2025-03-24] VITALS (19 sets, daily range): BP systolic 104–157; BP diastolic 50–94; PULSE 71–101; RESP 16–19; TEMP 97.8–98.7; O2SAT 95
[2025-03-24 06:24] LABS: INR 1.18 (0.85-1.15); PROTHROMBIN TIME 12.3 SEC (9.6-11.6)
[2025-03-24 06:25] LABS: ALBUMIN 1.8 g/dL (3.5-5.0); BILIRUBIN,TOTAL 1.8 mg/dL (0.2-1.0); CREATININE 0.8 mg/dL (0.5-1.0); MAGNESIUM 2.1 mg/dL (1.80-2.40); PARTIAL THROMBOPLASTIN TIME 41.3 SEC (26.3-35.5); POTASSIUM 3.8 mmol/L (3.5-5.1); TOTAL PROTEIN, SERUM 4.2 g/dL (6.0-8.3)
[2025-03-24 06:39] LABS: BASOPHILS # (AUTO) 0.02 K/uL (0.00-0.20); BASOPHILS % (AUTO) 0.3 % (0.0-5.0); HEMATOCRIT 31.7 % (36-48); IMMATURE GRANULOCYTE ABSOLUTE 0.06 K/uL (0-1); LYMPHOCYTES # (AUTO) 0.3 K/uL (1.0-4.8); LYMPHOCYTES % (AUTO) 4.9 % (21.0-51.0); MEAN CORPUSCULAR HEMOGLOBIN 29.1 pg (27.0-33.0); MEAN CORPUSCULAR HGB CONC 34.4 g/dL (32.0-36.0); MEAN CORPUSCULAR VOLUME 84.8 fL (79-99); MONOCYTES # (AUTO) 0.1 K/uL (0.1-1.0); MONOCYTES % (AUTO) 1.2 % (3.0-13.0); NEUTROPHILS # (AUTO) 5.6 K/uL (1.8-7.7); NEUTROPHILS % (AUTO) 92.6 % (40.0-77.0); PLATELET COUNT (AUTO) 21 K/uL (130-400); RED BLOOD CELL COUNT(AUTO) 3.74 MIL/uL (4.00-5.50); RED CELL DISTRIBUTION WIDTH 13.2 % (11.0-15.5); WHITE BLOOD COUNT (AUTO) 6.1 K/uL (4.8-10.8)
[2025-03-24 08:29] LABS: BAND NEUTROPHILS % (MANUAL) 46 % (0-2); LYMPHOCYTES % (MANUAL) 5 % (22-44); SEGMENTED NEUTROPHILS % 49 % (40-70); TOTAL CELLS COUNTED 100
[2025-03-24 08:30] LABS: MAN.DIFF COMMENT-IMPRESSION MANUAL DIFFERENTIAL; PLATELET MORPHOLOGY COMMENT MARKED DECREASE; WBC MORPHOLOGY CONSISTENT W/DIFF
--- NOTE | 2025-03-24 09:50 | PN ---
[facility] PROGRESS NOTE Date of Service: Mar 24, 2025 Time of Service: 09:[address] Martinez SUBJECTIVE: [ 03/20 Ms. Lagunas is a 79-year-old female who presented to [facility] ED via EMS from home for evaluation of generalized weakness and fever. Patient currently is GCS of 14. Per ED according to family the patient has a early-onset dementia, but has been more confused for the last few days. The daughter found her at home today to be very weak, she checked her temperature and she had a fever of 102 F. The patient denies any symptoms currently or any pain, cough, congestion, vomiting, or diarrhea. Family reported that she has been sleeping more, less active, and very weak with decreased oral intake. Daughter gave the patient 400 mg of ibuprofen prior to coming here. Family reports that the patient has not seen a doctor in years. She takes a daily multivitamin but otherwise no medications. She does live on her own. The patient was found to have a UTI. Sodium was 126. Negative for flu and COVID. CT of head: No acute intracranial bleed. Atrophy with white matter changes. Chest x-ray: No consolidations or pleural effusions. In ED patient was administered Rocephin1 g IV and NS IV 1905 mL. ED provider request patient be admitted to the hospital with the diagnosis of hyponatremia, dehydration, generalized weakness, thrombocytopenia, UTI. ED provider request consult to be placed for case management for placement at SNF. I assessed the patient at bedside in room number ED 10. Patient's breathing was even, unlabored, in no distress. Patient was oriented to person, place and situation. Not oriented to time. She states she does feel more confused than usual. I informed her of labs, diagnostics, and plan of care. She verbalized understanding and is in agreement with the plan. Plan and assessment are listed below. 03/21 was seen by nurse practitioner and physician during rounding in room 315. Patient receive two doses of 40 mEq of potassium for potassium of 3.3 today. Also magnesium was 1.5 and patient will receive 2 g of magnesium. UA was positive for leukocytosis. Patient continues to be on Rocephin 2 g daily urine culture pending. Chest x-ray negative. Head CT negative. Ultrasound abdomen pending results. Patient was on complaining of the redness and pus coming off of the patient's both eyes. Possibly patient may have a pink eye tobramycin was ordered. As per daughter was sitting at the bedside she has a beginning of dementia. We will start patient on memantine 5 mg b.i.d. for now. We will continue to monitor patient in the meantime. A.m. labs. 03/22 patient was seen by nurse practitioner and physician during rounding in room 315. Patient's eyes has been looking much better compared to the previous day. Patient continues to be on tobramycin. Platelets today dropped to 48 we consulted observer electrical prospecting/oncologist who is on-call today. Final urine cultures growing E coli and is sensitive to Rocephin. Once patient will be discharged we will discharge patient on Keflex when medical stable. Patient also had a temp of 103.1 today. We ordered CBC, BNP, BMP, lactic, procalcitonin, blood culture x2 and normal saline at 75 mL/hour for now. Once we will have the results we will give further recommendations. Physical therapy was consulted patient will also receive Glucerna shakes with the meals. Albumin 2.1 we will consult dietary for further evaluation/recommendations. As per case management patient is pending [facility] acceptance. 03/23 Patient was seen by nurse practitioner and physician during rounding in room 315. Granddaughter at the bedside. Today platelets dropped down to 27. Patient was evaluated by oncologist. And as per his note, [place] [address]. There is no blasts cell seen.There was hypersegmented neutrophils. This patient to be started on folic acid 1 mg p.o. daily and vitamin B12 1000 mcg p.o. daily. There is frequent pelger-Huet cell. This patient could have myelodysplastic syndrome.There is rouleaux phenomena. We will ask for SPEP, UPEP and free light chain. If there is monoclonal protein we will do a bone marrow biopsy, also is requesting to consult IR for bone marrow biopsy. Nurse practitioner spoke with the granddaughter at the bedside and at this moment she believes that they do not really want to proceed with biopsy. Patient had a fever of 100.3 at midnight last night. Urine culture positive for E coli blood culture still pending results. Patient continues to be on Zosyn WBC 4.8. We will continue to monitor patient in the meantime. A.m. 03/24 was seen by nurse practitioner and physician during rounding in room 315. Patient has been afebrile for the past 24 hours. Blood culture-24 hours x2 samples. Patient continues to be on Zosyn. Patient was evaluated by industrial security analyst and at this moment is recommending to provide 60 gm cho + glucerna TID w/ trays+ SF gatorage QD w/ lunch tray. As per observer electrical prospecting IR was consulted for bone marrow biopsy. Patient was also accepted to [facility]. We will continue to monitor patient in the meantime. A.m. labs REVIEW OF SYSTEMS 12-point ROS reviewed with patient. All pertinent positives mentioned above. Otherwise negative, noncontributory, non-pertinent. PHYSICAL EXAM GENERAL APPEARANCE: The patient is awake, alert, and oriented, in no acute card iopulmonary distress. NEUROLOGICAL: Cranial nerves II-XII grossly intact. Motor is 5/5 in bilateral upper and lower extremities proximal to distal. No sensory deficits. HEENT: Face is symmetric. Pupils are equal and reactive. Extraocular movements are intact. NECK: Supple. No JVD. No thyromegaly. No submental, submandibular, pre- /postauricular, occipital or supraclavicular lymphadenopathy. CHEST: Normal chest expansion. No Telemetry. LUNGS: Absence of any rales, rhonchi or any wheezing. CARDIOVASCULAR: Regular. S1 and S2 normal. No appreciable rubs, murmurs or gallops. ABDOMEN: Soft, nontender, and nondistended. There is no rebound, voluntary guarding, or rigidity. : Deferred. No Taylor. EXTREMITIES: Non-edematous and not cyanotic. No clubbing. Good capillary refill. SKIN: No skin breakdown. Vital Signs (last 8hr) Date Time Temp Pulse Resp B/P (MAP) Pulse Ox O2 Delivery O2 Flow Rate FiO2 03/24/25 08:30 98.8 96 17 104/52 98 Room Air 03/24/25 04:00 97.9 97 18 105/50 98 Room Air LABS: Laboratory: Test 03/24/25 05:33 03/24/25 05:15 03/23/25 04:18 03/22/25 15:48 Range/Units Whole Blood Glucose 76 70-110 MG/DL White Blood Count 6.1 4.8-10.8 K/uL Red Blood Count 3.74 L 4.00-5.50 MIL/uL Hemoglobin 10.9 L 12.0-16.0 g/dL Hematocrit 31.7 L 36-48 % Mean Corpuscular Volume 84.8 79-99 fL Mean Corpuscular Hemoglobin 29.1 27.0-33.0 pg Mean Corpuscular Hemoglobin Concent 34.4 32.0-36.0 g/dL Red Cell Distribution Width 13.2 11.0-15.5 % Platelet Count 21 L 130-400 K/uL Mean Platelet Volume 13.8 H 7.5-10.5 fL Immature Granulocyte % (Auto) 1.0 0-1 % Neutrophils (%) (Auto) 92.6 H 40.0-77.0 % Lymphocytes (%) (Auto) 4.9 L 21.0-51.0 % Monocytes (%) (Auto) 1.2 L 3.0-13.0 % Eosinophils (%) (Auto) 0.0 0.0-8.0 % Basophils (%) (Auto) 0.3 0.0-5.0 % Neutrophils # (Auto) 5.6 1.8-7.7 K/uL Lymphocytes # (Auto) 0.3 L 1.0-4.8 K/uL Monocytes # (Auto) 0.1 0.1-1.0 K/uL Eosinophils # (Auto) 0.00 0.00-0.70 K/uL Basophils # (Auto) 0.02 0.00-0.20 K/uL Absolute Immature Granulocyte (auto 0.06 0-1 K/uL Segmented Neutrophils % 49 40-70 % Band Neutrophils % 46 H 0-2 % Lymphocytes % (Manual) 5 L 22-44 % Nucleated Red Blood Cells 0.0 0.0-0.19 % Differential Comment MANUAL DIFFERENTIAL White Cell Morphology Comment CONSISTENT W/DIFF Platelet Morphology Comment MARKED DECREASE Red Blood Cell Morphology See comments Prothrombin Time 12.3 H 9.6-11.6 SEC Prothromb Time International Ratio 1.18 H 0.85-1.15 Activated Partial Thromboplast Time 41.3 H 26.3-35.5 SEC Sodium Level 133 L 136-145 mmol/L Potassium Level 3.8 3.5-5.1 mmol/L Chloride Level 103 101-111 mmol/L Carbon Dioxide Level 24 21-32 mmol/L Blood Urea Nitrogen 14 7-18 mg/dL Creatinine 0.8 0.5-1.0 mg/dL Glomerular Filtration Rate Calc 74 >90 mL/min Random Glucose 75 70-105 mg/dL Total Calcium 7.5 L 8.5-10.1 mg/dL Magnesium Level 2.10 1.80-2.40 mg/dL Total Bilirubin 1.8 H 0.2-1.0 mg/dL Aspartate Amino Transf (AST/SGOT) 93 H 10-37 U/L Alanine Aminotransferase (ALT/SGPT) 36 12-78 U/L Alkaline Phosphatase 174 H 50-136 U/L Total Protein 4.2 L 6.0-8.3 g/dL Albumin 1.8 L 3.5-5.0 g/dL Monocytes % (Manual) 2 2-9 % Lactic Acid Level 1.3 0.8-2.5 mmol/L B-Type Natriuretic Peptide 202 H 0-100 pg/mL Procalcitonin 1.74 H 0.05-0.5 ng/mL Current Medications Medications (Trade) Dose Ordered Sig/Lucila Route PRN Reason Start Time Stop Time Status Last Admin Dose Admin Acetaminophen (TYLenol 325MG TAB) 650 mg Q4H PRN PO TEMPERATURE GREATER THAN 101.5 03/22/25 23:30 04/21/25 23:29 Acetaminophen (TYLenol 325MG TAB) 650 mg Q6H PRN PO FEVER/MILD PAIN LEVEL 1-3 03/21/25 01:30 04/20/25 01:29 03/23/25 18:23 650 MG Acetaminophen (TYLenol 650MG SUPPOSITORY) 650 mg Q6H PRN RC FEVER / MILD PAIN 1-3 IF NPO 03/21/25 01:30 04/20/25 01:29 Amlodipine Besylate (NorvASC 5MG TAB) 10 mg DAILY PO 03/23/25 09:00 04/22/25 08:59 Ceftriaxone Sodium (Rocephin 2gm Inj) 2 gm Q24H IVPB 03/21/25 23:00 03/22/25 16:05 DC 03/21/25 22:18 2 GM Docusate Sodium (COLace 100MG CAP) 100 mg BID PRN PO CONSTIPATION 03/21/25 01:30 04/20/25 01:29 Ferrous Sulfate (Ferrous Sulfate) 325 mg DAILY PO 03/23/25 09:00 04/22/25 08:59 03/23/25 10:06 325 MG Folic Acid (FOLic ACID 1 MG TABLET) 1 mg DAILY PO 03/23/25 09:00 04/22/25 08:59 03/23/25 10:07 1 MG Insulin Human Regular (humuLIN R 100 UNIT/ML 3ML) INSULIN SLIDING SCAL... ACHS SQ 03/21/25 07:30 04/20/25 07:29 Labetalol HCl (TRANdate 20MG SYG) 10 mg Q2H PRN IV SBP GREATER THAN 160 03/21/25 01:30 04/20/25 01:29 Lactulose (Constulose 20gm/ 30ml Udcup) 20 gm Q6H PRN PO CONSTIPATION 03/21/25 01:30 04/20/25 01:29 Magnesium Sulfate 50 ml @ 0 mls/hr PROTOCOL IV 03/21/25 10:30 04/20/25 10:29 03/23/25 06:27 25 MLS/HR Memantine (NAmenDA 5 MG TAB) 5 mg BID PO 03/21/25 21:00 04/20/25 20:59 03/23/25 21:51 5 MG Ondansetron HCl (zoFRAN 4MG INJ) 4 mg Q6H PRN IVP NAUSEA/VOMITING 03/21/25 01:30 04/20/25 01:29 Piperacillin Sod/ Tazobactam Sod (Zosyn 3.375gm+NS 50ml) 3.375 gm Q8H IVPB 03/22/25 16:30 04/01/25 16:29 03/24/25 00:43 3.375 GM Sodium Chloride 1,000 ml @ 75 mls/hr [id number] IV 03/22/25 16:00 04/21/25 15:59 03/23/25 21:48 75 MLS/HR Sodium Chloride (NS 50ml) 50 ml AD IV 03/22/25 16:30 03/22/25 16:12 DC Tobramycin/ Dexamethasone (TobraDEX EYE DROPS) 1 DROP Q6H OS 03/21/25 12:00 04/20/25 11:59 03/24/25 06:15 1 DROP DIAGNOSTICS / RADIOLOGY: [ ] ASSESSMENT: Acute complicated cystitis, POA Acute metabolic encephalopathy, POA [facility] POA New diagnosis of dementia POA Hyponatremia, POA Electrolyte derangement (hyponatremia, hypochloremia, hypocalcemia) Severe Protein calorie malnutrition/hypoalbuminemia Acute Dehydration/ketonuria, POA Acute kidney injury, POA, GFR 65 (no other GFR to compare) Acute febrile illness, POA Hyperglycemia Elevated AST and direct bilirubin General body weakness/debility/frailty Anorexia Leukopenia, POA Anemia Thrombocytopenia PLAN: Continue medical surgical floor with telemetry As per oncologist/observer electrical prospecting [place] [address]. There is no blasts cell seen.There was hypersegmented neutrophils. This patient to be started on folic acid 1 mg p.o. daily and vitamin B12 1000 mcg p.o. daily.There is frequent pelger-Huet cell. This patient could have myelodysplastic syndrome.There is rouleaux phenomena. We will ask for SPEP, UPEP and free light chain. If there is monoclonal protein we will do a bone marrow biopsy, also is requesting to consult IR for bone marrow biopsy. IR bone marrow biopsy pending 03/24/2025 Nurse practitioner spoke with the granddaughter at the bedside and at this moment she believes that they do not really want to proceed with biopsy. Urine culture positive for E coli. Once patient will be medically stable to be discharged home patient will be discharged on Keflex for eight days Patient temp of 103 we will order BNP CBC lactic acid procalcitonin, blood culture x2 BNP Normal saline at 75 mL/hour Case management is working on [facility] We will start place patient on amlodipine 10 mg p.o. daily for hypertension Patient positive with a pink eye patient will be started on tobramycin Dietary consultation Oncologist/observer electrical prospecting consulted for low platelets Patient is started on iron for iron-deficiency anemia as per dietary consultation Provide 60 gm cho + glucerna TID w/ trays+ SF gatorage QD w/ lunch tray Chest x-ray negative Head CT negative Ultrasound abdomen gallbladder polyps Home medications to be reconciled once available. At this moment no meds in the computer. As per RN patient does not take any medications at home -Monitor respiratory status closely. Oxygen therapy as needed to keep Spo2>/+=92%. -PRN medications for: Pain management, fever, hypertension, N/V, constipation. -Glucometer checks AC & HS needed with insulin regular sliding scale coverage as needed. - Monitor renal and liver function. -Monitor electrolytes and treat accordingly PRN -AM labs. -GI and DVT prophylaxis -Further plan/orders per hospitalization course. ATTESTATION BY PHYSICIAN I have seen and examined the patient. I reviewed the documentation, medical decision making, and treatment plan as noted by the mid-level provider above. I agree with the findings and plan of care. TRANG Lazo MD CLINIC NURSE Mar 24, 2025 09:50
[2025-03-24] MEDS ORDERED: FENTanyl CITRate PF 50 MCG/1 ML 2ML VIAL ONE (12:08)
[2025-03-24] MEDS ORDERED: MIDAZOLAM HCL 1 MG/ML 2ML VIAL ONE (12:08)
[2025-03-24] MEDS ORDERED: DOXYCYCLINE 100MG+NS 250ML 250 ML IV SCH (12:30)
[2025-03-24 14:12] LABS: FREE KAPPA LIGHT CHAINS,S 29.3 mg/L (3.3-19.4)
--- NOTE | 2025-03-24 15:24 | PN ---
Ms. Lagunas is a 79-year-old female who presented to [facility] ED via EMS from home for evaluation of generalized weakness and fever. Patient currently is GCS of 14. Per ED according to family the patient has a early-onset dementia, but has been more confused for the last few days. The daughter found her at home today to be very weak, she checked her temperature and she had a fever of 102 F. The p atient denies any symptoms currently or any pain, cough, congestion, vomiting, or diarrhea. Family reported that she has been sleeping more, less active, and very weak with decreased oral intake. Patient platelet is 27K. There is no obvious bleeding. This patient was taken for bone marrow biopsy to be done today. PHYSICAL EXAM GENERAL APPEARANCE: The patient is awake, alert, and oriented, in no acute cardiopulmonary distress. NEUROLOGICAL: Cranial nerves II-XII grossly intact. Motor is 5/5 in bilateral upper and lower extremities proximal to distal. No sensory deficits. HEENT: Face is symmetric. Pupils are equal and reactive. Extraocular movements are intact. NECK: Supple. No JVD. No thyromegaly. No submental, submandibular, pre- /postauricular, occipital or supraclavicular lymphadenopathy. CHEST: Normal chest expansion. No Telemetry. LUNGS: Absence of any rales, rhonchi or any wheezing. CARDIOVASCULAR: Regular. S1 and S2 normal. No appreciable rubs, murmurs or gallops. ABDOMEN: Soft, nontender, and nondistended. There is no rebound, voluntary guarding, or rigidity. : Deferred. No Taylor. EXTREMITIES: Non-edematous and not cyanotic. No clubbing. Good capillary refill. SKIN: No skin breakdown. This patient could have myelodysplastic syndrome. Assessment 1. Thrombocytopenia 2. Anemia 3. Acute complicated cystitis 4. Acute encephalopathy 5. Acute renal failure 6. Dementia Plan 1. Peripheral blood smear showed red blood cells to be normocytic normochromic. There was no fragment cell or schistocyte. There is no teardrop cell. White blood cell with no blasts. There is large platelet. Manual platelet count is around 80K. There was no blast cells be seen. 2. There was hypersegmented neutrophils. This patient to continue on folic acid 1 mg p.o. daily and vitamin B12 1000 mcg p.o. daily. 3. There is frequent pelger-Huet cell. This patient could have myelodysplastic syndrome. 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 We will ask for SPEP, UPEP and free light chain. If there is monoclonal protein we will do a bone marrow biopsy. 5. Family agree on bone marrow biopsy. We will do the bone marrow biopsy today 6. The family member wanted her to receive a platelet transfusion. I told her that her platelet is above 10,000 and there is no obvious bleeding. There is no indication to do that. It seems the family member is stuck to the number. I told her that the platelets stay in the system maximum 8 to 10 days. So given her the platelet is not going to help her 7. This seems the patient going to skilled nursing. So they could do the CBC in the skilled nursing. If this patient have any bleeding then they could bring her to the emergency department Vitals/Labs Vital Signs Date Time Temp Pulse Resp B/P (MAP) Pulse Ox O2 Delivery O2 Flow Rate FiO2 03/24/25 12:09 98.4 89 18 125/62 94 Room Air 03/23/25 20:00 0 21 Laboratory Tests 03/24/25 05:15 Medications Current Medications Sodium Chloride 1,905 ml @ 635 mls/hr ONCE ONCE IV Last administered on 03/20/25at 21:32; Start 03/20/25 at 21:30; Stop 03/21/25 at 00:29; Status DC Ceftriaxone Sodium 1 gm ONCE ONCE IVPB Last administered on 03/20/25at 23:19; Start 03/20/25 at 23:00; Stop 03/20/25 at 23:01; Status DC Ceftriaxone Sodium 2 gm Q24H IVPB Last administered on 03/21/25at 22:18; Start 03/21/25 at 23:00; Stop 03/22/25 at 16:05; Status DC Sodium Chloride 1,000 ml @ 75 mls/hr [id number] ONCE IV; Start 03/21/25 at 01:30; Stop 03/21/25 at 14:49; Status DC Acetaminophen 650 mg Q6H PRN PO Last administered on 03/23/25at 18:23; Start 03/21/25 at 01:30; Stop 04/20/25 at 01:29 Acetaminophen 650 mg Q6H PRN RC; Start 03/21/25 at 01:30; Stop 04/20/25 at 01:29 Lactulose 20 gm Q6H PRN PO; Start 03/21/25 at 01:30; Stop 04/20/25 at :29 Docusate Sodium 100 mg BID PRN PO; Start 03/21/25 at 01:30; Stop 04/20/25 at :29 Ondansetron HCl 4 mg Q6H PRN IVP; Start 03/21/25 at 01:30; Stop 04/20/25 at :29 Labetalol HCl 10 mg Q2H PRN IV; Start 03/21/25 at 01:30; Stop 04/20/25 at :29 Insulin Human Regular INSULIN SLIDING SCAL... ACHS SQ; Start 03/21/25 at 07:30; Stop 04/20/25 at 07:29 Magnesium Sulfate 50 ml @ 0 mls/hr PROTOCOL IV Last administered on 03/23/25at 06:27; Start 03/21/25 at 10:30; Stop 04/20/25 at 10:29 Potassium Chloride 40 meq ONCE ONCE PO; Start 03/21/25 at 13:00; Stop 03/21/25 at 13:01; Status DC Potassium Chloride 40 meq ONCE ONCE PO Last administered on 03/21/25at 11:54; Start 03/21/25 at 10:30; Stop 03/21/25 at 10:31; Status DC Tobramycin/ Dexamethasone 1 DROP Q6H OS Last administered on 03/24/25at 06:15; Start 03/21/25 at 12:00; Stop 04/20/25 at 11:59 Memantine 5 mg BID PO Last administered on 03/23/25at 21:51; Start 03/21/25 at 21:00; Stop 04/20/25 at 20:59 Potassium Chloride 40 meq ONCE ONCE PO; Start 03/22/25 at 10:30; Stop 03/22/25 at 10:34; Status DC Potassium Chloride 20 meq ONCE ONCE PO Last administered on 03/22/25at 21:18; Start 03/22/25 at 21:00; Stop 03/22/25 at 21:01; Status DC Folic Acid 1 mg DAILY PO Last administered on 03/23/25at 10:07; Start 03/23/25 at 09:00; Stop 04/22/25 at 08:59 Sodium Chloride 1,000 ml @ 75 mls/hr [id number] IV Last administered on 03/23/25at 21:48; Start 03/22/25 at 16:00; Stop 04/21/25 at 15:59 Ferrous Sulfate 325 mg DAILY PO Last administered on 03/23/25at 10:06; Start 03/23/25 at 09:00; Stop 04/22/25 at 08:59 Piperacillin Sod/ Tazobactam Sod 3.375 gm Q8H IVPB Last administered on 03/24/25at 00:43; Start 03/22/25 at 16:30; Stop 04/01/25 at 16:29 Sodium Chloride 50 ml AD IV; Start 03/22/25 at 16:30; Stop 03/22/25 at 16:12; Status DC Amlodipine Besylate 10 mg DAILY PO; Start 03/23/25 at 09:00; Stop 04/22/25 at 08:59 Potassium Chloride 40 meq ONCE ONCE PO Last administered on 03/22/25at 17:26; Start 03/22/25 at 17:00; Stop 03/22/25 at 17:01; Status DC Acetaminophen 650 mg Q4H PRN PO; Start 03/22/25 at 23:30; Stop 04/21/25 at 23:29 Fentanyl Citrate 100 mcg STK-MED ONCE .ROUTE; Start 03/24/25 at 12:08; Stop 03/24/25 at 12:09; Status DC Midazolam HCl 2 mg STK-MED ONCE .ROUTE; Start 03/24/25 at 12:08; Stop 03/24/25 at 12:09; Status DC Doxycycline Hyclate 250 ml @ 125 mls/hr Q12H IV; Start 03/24/25 at 12:30; Stop 04/03/25 at 12:29 JEYSON QUEVEDO MD Mar 24, 2025 15:24
--- NOTE | 2025-03-24 15:47 | NUR ---
DRESSING DRESSING TO LOWER BACK INTACT SMALL AMOUNT OF DRAINAGE NOTED ON DRESSING .GRANDDAUGHTER REQUESTED DNR FOR PATIENT , PROVIDER INFORMED AND DNR ORDERS OBTAINED.
--- NOTE | 2025-03-24 16:02 | HMCIMG ---
US GUIDANCE NDL PLCMT IR, US BX BONE MARROW ASP/BX IR INDICATION: LOW PLTS DIESEL INSPECTOR: Dr. Velasquez PROCEDURE DETAILS: Informed consent was obtained after discussion of the risks, benefits and alternatives to this treatment. Sterile Prep: All elements of maximal sterile barrier technique, including hand hygiene and cutaneous antisepsis were used. A time-out was performed prior to the procedure. Anesthesia type: Moderate sedation and local anesthetic. Estimated blood loss: Less than 5 cc. TECHNIQUE: Intraprocedural or immediate post-procedural complications: None The patient was placed prone on the table. The lower back was prepped and draped in a sterile fashion. 1% lidocaine was used for local anesthesia. Initial imaging was used to localize an appropriate entry site. Using imaging guidance, a 13-gauge bone marrow biopsy needle was advanced into the right posterior iliac crest and confirmatory image was obtained. Approximately 12 cc of marrow was aspirated and the needle was gently advanced to obtain a core biopsy. The needle was removed and hemostasis achieved with manual compression. Sterile dressing was applied. Completion imaging was obtained. The patient tolerated the procedure well. No immediate complication. FINDINGS: Ultrasound demonstrated adequate position of the needle. Completion imaging demonstrated no evidence of hematoma. IMPRESSION: Uneventful bone marrow biopsy using ultrasound guidance. Specimen sent for analysis.
[2025-03-24] MEDS: ZOSYN 3.375GM +NS 50ML IVPB SCH (18:23)
[2025-03-24] MEDS: DOXYCYCLINE 100MG+NS 250ML 250 ML IV SCH (20:54)
[2025-03-24] MEDS ORDERED: GLUCAGON 1MG KIT 1 MG ML IM PRN (21:30)
[2025-03-24] MEDS: DEXTROSE 50%-WATER 50 ML DISP.SYRIN IV PRN (21:38)
[2025-03-25] VITALS: BP 118/50; PULSE 96; RESP 17; TEMP 98.2
[2025-03-25 04:00] VITALS: BP 167/60; PULSE 103; RESP 17; TEMP 98.5
[2025-03-25 06:07] LABS: BASOPHILS # (AUTO) 0.03 K/uL (0.00-0.20); BASOPHILS % (AUTO) 0.4 % (0.0-5.0); EOSINOPHILS # (AUTO) 0.02 K/uL (0.00-0.70); EOSINOPHILS % (AUTO) 0.3 % (0.0-8.0); HEMATOCRIT 29.8 % (36-48); LYMPHOCYTES # (AUTO) 0.9 K/uL (1.0-4.8); LYMPHOCYTES % (AUTO) 12.5 % (21.0-51.0); MEAN CORPUSCULAR HEMOGLOBIN 29.6 pg (27.0-33.0); MEAN CORPUSCULAR HGB CONC 35.6 g/dL (32.0-36.0); MEAN CORPUSCULAR VOLUME 83.2 fL (79-99); MONOCYTES # (AUTO) 0.2 K/uL (0.1-1.0); MONOCYTES % (AUTO) 2.9 % (3.0-13.0); NEUTROPHILS # (AUTO) 6.2 K/uL (1.8-7.7); NEUTROPHILS % (AUTO) 82.6 % (40.0-77.0); PLATELET COUNT (AUTO) 30 K/uL (130-400); RED BLOOD CELL COUNT(AUTO) 3.58 MIL/uL (4.00-5.50); RED CELL DISTRIBUTION WIDTH 13.7 % (11.0-15.5); WHITE BLOOD COUNT (AUTO) 7.5 K/uL (4.8-10.8)
[2025-03-25 06:20] LABS: ALBUMIN 1.8 g/dL (3.5-5.0); BILIRUBIN,TOTAL 1.6 mg/dL (0.2-1.0); CREATININE 0.7 mg/dL (0.5-1.0); POTASSIUM 3.6 mmol/L (3.5-5.1); TOTAL PROTEIN, SERUM 4.3 g/dL (6.0-8.3)
[2025-03-25] MEDS: ZOSYN 3.375GM +NS 50ML IVPB SCH ×2 (07:59→16:00)
[2025-03-25 08:00] VITALS: BP 160/69; PULSE 101; RESP 17; TEMP 98.1
[2025-03-25 08:47] VITALS: O2SAT 98
--- NOTE | 2025-03-25 11:06 | NUR ---
LUCA AGARWAL AT BEDSIDE. TALKING TO FAMILY. AWARE OF K : 3.6 AND NO PROTOCOL. NO FURTHER ORDERS AT THIS TIME.
[2025-03-25] MEDS: PoTASSium chloRIDE 20MEQ ER 20 MEQ ERTAB PO ONE (11:57)
[2025-03-25 12:26] VITALS: BP 132/53; PULSE 97; RESP 18; TEMP 98.8
--- NOTE | 2025-03-25 14:32 | DS ---
Discharge Summary Hospital Course Summary: History of Present Illness: Ms. Lagunas, an 79-year-old female, presented to the [facility] Department via EMS with generalized weakness and fever. She was found to have a Jimmy Coma Scale (GCS) of 14. The family reported early-onset dementia with increased confusion over the past few days. The patient had a fever of 102F at home, with no other symptoms such as pain, cough, congestion, vomiting, or diarrhea. She had been sleeping more, was less active, and had decreased oral intake. The patient had not seen a doctor in years and only took a daily multivitamin. Hospital Course: Upon evaluation, the patient was diagnosed with a UTI, hyponatremia, dehydration, and thrombocytopenia. Initial labs showed sodium at 126 and a negative result for flu and COVID. Imaging included a CT of the head, which showed no acute intracranial bleed but did show atrophy with white matter changes, and a chest X-ray, which showed no consolidations or pleural effusions. In the ED, the patient received Rocephin 1 g IV and 1905 mL of normal saline. The patient was admitted for further management. Urinalysis was positive for leukocyte esterase and cloudy urine, with a urine culture growing E. coli. Despite treatment, the patient continued to decline functionally, with noted debility and weakness. Hematology was consulted due to low platelet counts, and a bone biopsy was performed by interventional radiology on 03/24/2025, with results pending. Suspected myelodysplastic syndrome was discussed with the patient's daughter. Discharge Plan: The patient is stable for discharge to a [facility] facility ([facility]), where she will complete her course of IV antibiotics. The patient's daughter, who is the vice-president of business asst at the SNF, has arranged for her mother's transfer and is aware of the need for follow-up with hematology for biopsy results. The patient will also begin physical, occupational, and speech therapy at the SNF to regain strength before returning home. Advice Nurse(s): Dr. Coello- education analyst Procedure(s): 03/24/25- bone marrow biopsy by Dr. Bay Assessment/Plan: Discharge Diagnoses: Hyponatremia, Dehydration, Generalized Weakness, Thrombocytopenia, UTI, Suspected Myelodysplastic Syndrome Acute complicated cystitis, POA Acute metabolic encephalopathy, POA [place] eye POA New diagnosis of dementia POA Hyponatremia, POA Electrolyte derangement (hyponatremia, hypochloremia, hypocalcemia) Severe Protein calorie malnutrition/hypoalbuminemia Acute Dehydration/ketonuria, POA Acute kidney injury, POA, GFR 65 (no other GFR to compare) Acute febrile illness, POA Hyperglycemia Elevated AST and direct bilirubin General body weakness/debility/frailty Anorexia Leukopenia, POA Anemia Thrombocytopenia Admitting diagnoses: Acute complicated cystitis, POA Acute metabolic encephalopathy, POA [place] eye POA New diagnosis of dementia POA Hyponatremia, POA Electrolyte derangement (hyponatremia, hypochloremia, hypocalcemia) Severe Protein calorie malnutrition/hypoalbuminemia Acute Dehydration/ketonuria, POA Acute kidney injury, POA, GFR 65 (no other GFR to compare) Acute febrile illness, POA Hyperglycemia Elevated AST and direct bilirubin General body weakness/debility/frailty Anorexia Leukopenia, POA Anemia Thrombocytopenia Discharge Instructions: Patient will be transferred to penitentiary facility to complete total of14 days antibiotic, Rehabilitation to evaluate and treat Patient to follow up with PCP in 2-3 days after discharge from the facility Follow up with Dr. Booker for bone marrow biopsy results Home Medications: Unable to Obtain Active Prescriptions or Reported Meds Time spent arranging discharge: 31-60 minutes ATTESTATION BY PHYSICIAN I have seen and examined the patient. I reviewed the documentation, medical decision making, and treatment plan as noted by the mid-level provider above. I agree with the findings and plan of care. JOSSUE CALL MD, [facility] Mar 25, 2025 14:31
--- NOTE | 2025-03-25 15:30 | NUR ---
DISCHARGE DC'D IV. KENDELL LAN COSIGNED DISCHARGE PAPER WORK. BRIAN STERLING CALLED. AWARE OF PT BEING DISCHARGED. PENDING EMS TO [facility].
[2025-03-25 16:00] VITALS: BP 126/50; PULSE 87; RESP 17; TEMP 97.8
[2025-03-27 15:13] LABS: ALBUMIN (IFE & ELECTROPHOR) 2.1 g/dL (2.9-4.4); ALPHA-1 (IFE & PEP) 0.3 g/dL (0.0-0.4); ALPHA-2 (IFE & PEP) 0.5 g/dL (0.4-1.0); BETA (IFE & ELP) 0.7 g/dL (0.7-1.3); GAMMA GLOBULINS (IFE & ELP) 0.7 g/dL (0.4-1.8); GLOBULIN TOTAL (IFE) 2.2 g/dL (2.2-3.9); IGA (IFE) 173 mg/dL (64-422); IGG (IMMUNOFIXATION) 701 mg/dL (586-1602); IGM (IMMUNOFIXATION) 59 mg/dL (26-217); M-SPIKE (IEP) Not Observed g/dL (Not Observed); TOTAL PROTEIN 4.3 g/dL (6.0-8.5)
== END 2025-03-25 19:15 | DRG 640 ==
LOC: EDH 21:10 → EDHIP 23:08 → 3CH 03-21 02:27
PROVIDERS: ADMIT Internal Medicine; ATTEND Internal Medicine
PROC: 07DR3ZX Extraction of Iliac Bone Marrow, Percutaneous Approach, Diagnostic (ICD-10-PCS; principal; 2025-03-24)
DX: E87.1 Hypo-osmolality and hyponatremia (principal); E43 Unspecified severe protein-calorie malnutrition; G93.41 Metabolic encephalopathy; N30.00 Acute cystitis without hematuria; N17.9 Acute kidney failure, unspecified; E86.0 Dehydration; B96.20 Unspecified Escherichia coli [E. coli] as the cause of diseases classified elsewhere; I10 Essential (primary) hypertension; D64.9 Anemia, unspecified; D69.6 Thrombocytopenia, unspecified; E83.51 Hypocalcemia; R73.9 Hyperglycemia, unspecified; E87.8 Other disorders of electrolyte and fluid balance, not elsewhere classified; E88.09 Other disorders of plasma-protein metabolism, not elsewhere classified; F03.90 Unspecified dementia, unspecified severity, without behavioral disturbance, psychotic disturbance, mood disturbance, and anxiety; Z20.822 Contact with and (suspected) exposure to COVID-19; Z79.899 Other long term (current) drug therapy; Z68.25 Body mass index [BMI] 25.0-25.9, adult
CPT/HCPCS: 36415; 38222; 70450; 71045; 76705; 76942; 80048; 80053; 80076; 81001; 82140; 82550; 82607; 82746; 82948; 83036; 83521; 83540; 83550; 83605; 83735; 83880; 84100; 84145; 84443; 84484; 85025; 85027; 85610; 85730; 86334; 86880; 87040; 87086; 87186; 87426; 87804; 88184; 88185; 88189; 93005; 99152; 99153; 99285; G0378; J0696; J2250; J2543; J3010; J3475; J3490; J7070; C1830; G0500